=== PATIENT | female | born 1940 | race Caucasian/White ===

== ENCOUNTER → 2024-01-18 07:39 | Outpatient (REF) | payer OTHER, SELFPAY ==
[2024-01-18 08:31] LABS: % Basophils 1.6 % (0-2); % Eosinophils 2.5 % (0-6); % Immature Granulocytes 0.3 % (0-0.5); % Lymphocytes 47.5 % (20.5-51.1); % Monocytes 18.1 % (1.7-9.3); Absolute Basophils 0.1 10^3/uL (0-0.2); Absolute Eosinophils 0.1 10^3/uL (0-0.7); Absolute Lymphocytes 1.7 10^3/uL (1.2-3.4); Absolute Monocytes 0.7 10^3/uL (0.1-0.6); Absolute Neutrophils 1.1 10^3/uL (1.4-6.5); Hematocrit 39.4 % (37.0-47.0); Hemoglobin 13.7 g/dL (12.0-16.0); Mean Corp Hgb Conc. 34.8 g/dL (33.0-37.0); Mean Corpuscular Hgb 30.4 pg (27.0-31.0); Mean Corpuscular Volume 87.6 fL (81.0-99.0); Mean Platelet Volume 8.9 fL (7.4-10.4); Nucleated Red Blood Cells % 0 %; Platelet Count 244 10^3/uL (130-400); Red Cell Dist. Width 12.8 % (11.5-14.5); White Blood Cell Count 3.6 10^3/uL (4.8-10.8)
[2024-01-18 09:22] LABS: ALT (SGPT) 83 U/L (0-35); AST (SGOT) 63 U/L (14-36); Albumin 4.5 g/dl (3.5-5.0); Alkaline Phosphatase 48 U/L (38-126); Blood Urea Nitrogen 17 mg/dl (7-17); Calcium 9.4 mg/dl (8.4-10.2); Carbon Dioxide 26 mmol/L (22-30); Chloride 101 mmol/L (98-107); Glucose 119 mg/dl (70-99); HDL Cholesterol 43 mg/dl; LDL Cholesterol, Calculated 166 mg/dl; Potassium 4.3 mmol/L (3.5-5.1); Sodium 134 mmol/L (135-145); Total Bilirubin 0.7 mg/dl (0.2-1.3); Total Cholesterol 274 mg/dl (50-199); Total Protein 7.3 g/dl (6.3-8.2); Triglyceride 326 mg/dl (10-149); Very Low Density Lipoprotein 65 mg/dl (0-30); eGFR > 60.00
[2024-01-18 09:27] LABS: Glycohemoglobin (HgbA1c) 6.7 % (4.0-5.6)
== END ==
LOC: REG 07:39
PROVIDERS: ATTENDING PHYSICIAN Internal Medicine Endocrinology, Diabetes & Metabolism; FAMILY PHYSICIAN Internal Medicine
DX: E11.9 Type 2 diabetes mellitus without complications (principal)
CPT/HCPCS: 36415; 80053; 80061; 83036; 85025

== ENCOUNTER 2024-03-03 17:53 | Emergency (ER) | payer OTHER, SELFPAY ==
[2024-03-03 18:01] VITALS: BP 136/71; BMI 26.5
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
[2024-03-03 20:17] VITALS: BP 103/63
[2024-03-03] MEDS: TYLENOL 650 MG PO (20:24)
[2024-03-03 20:29] VITALS: BP 103/65
== END 2024-03-03 20:30 | disposition home or self-care (01) ==
LOC: EMR 17:53
PROVIDERS: EMERGENCY PHYSICIAN Emergency Medicine; FAMILY PHYSICIAN Internal Medicine
DX: S20.219A Contusion of unspecified front wall of thorax, initial encounter (principal); Y92.410 Unspecified street and highway as the place of occurrence of the external cause; K21.9 Gastro-esophageal reflux disease without esophagitis; I10 Essential (primary) hypertension; E78.00 Pure hypercholesterolemia, unspecified; E11.9 Type 2 diabetes mellitus without complications; Z87.440 Personal history of urinary (tract) infections
CPT/HCPCS: 99283; 71046; 93005

== ENCOUNTER 2024-04-14 07:16 | Emergency (ER) | payer OTHER, SELFPAY ==
[2024-04-14 07:23] VITALS: BP 133/76
[2024-04-14 08:53] VITALS: BP 126/71
[2024-04-14 09:00] VITALS: BP 114/62
--- NOTE | 2024-04-14 09:03 | ED.GENMED ---
History of Present Illness
General
Chief Complaint: Abdominal Symptoms
Source: patient and spouse
Exam Limitations: none
Time Seen by Provider: 04/14/24 08:35
Nursing documentation reviewed up to this point in time: agreed with
Travel History
Have you had any contact with someone who has COVID-19?: No
Do you have any symptoms of coronavirus? Fever > 100 degrees, chills, cough, shortness of breath, sore throat, loss of taste or smell, muscle aches, or headache?: No
History of Present Illness
History of Present Illness:
83-year-old female presents to the emergency department complaining of nausea, decreased appetite for past 3 days.
Past History
Past History
ED Past Medical History: GERD, HTN, Hypercholesterolemia, NIDDM (Diet controlled) and Other (Interstitial cystitis, UTIs)
ED Past Surgical History: Orthopedic and Tonsilectomy
Social History
Tobacco: Non-smoker
Alcohol: None
Drug: None
Personal:
Living: with family
Employment: Retired
Family History
Family History: Other (Noncontributory)
Review of Systems
Review of Systems
Allergies reviewed?: Yes
All Other Systems: Not applicable
Constitutional: Reports no symptoms
EENT: Reports no symptoms
Respiratory: Reports no symptoms
Cardiac: Reports no symptoms
ABD/GI: Reports nausea and anorexia
: Reports no symptoms
Musculoskeletal: Reports no symptoms
Skin: Reports no symptoms
Neurological: Reports no symptoms
Endocrine: Reports no symptoms
Hematologic/Lymphatic: Reports no symptoms
Psychiatric: Reports no symptoms
Phy Exam
Physical Exam
Physical Exam:
Physical Exam
General: no apparent distress, not acutely ill
Neck: supple. no meningeal signs. normal posterior pharynx
Heart: s1/s2 regular rate and rhythm, no murmur. equal radial
pulses.
HEENT: Pupils equal round reactive to light, EOMI
Lungs: no acute respiratory distress. clear bilaterally
Abdomen: normal bowel sounds. not tender. no CVAT
Neuro: alert and oriented. no focal neurological deficits cranial nerves II through XII intact, ambulates without difficulty
Skin: no rash
Psychiatric: well kept. interactive and cooperative
Extremities: no edema. no calf tenderness. negative homans. good distal pulses
Course
Orders/Labs/Results
Orders:
Orders
04/14/24 08:52
Complete Blood Count/With Diff Urgent
Comprehensive Metabolic Panel Urgent
Lipase Urgent
Comment: ADD ON
UA [Urinalysis] Urgent
Date Specimen was Collected: 04/14/24
Time Specimen was Collected: 08:24
Urine Microscopic Urgent
Date Specimen was Collected: 04/14/24
Time Specimen was Collected: 08:24
04/14/24 08:56
0.9% Sodium Chloride 1000 ml [Nss] 1,000 ml IV BOLUS
04/14/24 08:57
Ondansetron Injectable [Zofran] 4 mg IV NOW STA
04/14/24 09:01
0.9% Sodium Chloride 1000 ml [Nss] 1,000 ml IV BOLUS
Ondansetron Injectable [Zofran] 4 mg IV NOW STA
04/14/24 09:39
Add On- LAB Urgent
Tests Added?: lipase
Abnormal Lab Results
04/14/24
08:52
Absolute Monos (auto) 0.8 H 10^3/uL
(0.1-0.6)
Monocytes % 15.8 H %
(1.7-9.3)
Sodium 127 L mmol/L
(135-145)
Chloride 90 L mmol/L
(98-107)
Creatinine 0.5 L mg/dL
(0.6-1.0)
Glucose 142 H mg/dl
(70-99)
AST 91 H U/L
(14-36)
ALT 85 H U/L
(0-35)
Total Protein 8.3 H g/dl
(6.3-8.2)
Albumin 5.3 H g/dl
(3.5-5.0)
Urine Occult Blood Trace A
(Negative)
Ur Leukocyte Esterase Trace A
(Negative)
Urine Albumin 1+ A
(Neg - Trace)
04/14/24 08:52
04/14/24 08:52
Vital Signs
Initial and Last Documented VS:
Initial Vital Signs
Temp Pulse Resp BP Pulse Ox
97.9 F 94 20 133/76 96
04/14/24 07:23 04/14/24 07:23 04/14/24 07:23 04/14/24 07:23 04/14/24 07:23
Last Documented Vital Signs
Temp Pulse Resp BP Pulse Ox
97.9 F 78 20 130/67 88
04/14/24 07:23 04/14/24 09:47 04/14/24 07:23 04/14/24 10:00 04/14/24 10:39
MDM/Problems Addressed
Differential Diagnosis Includes:
hyponatremia, nausea
MDM/Problems Addressed:
83 yo female with hyponatremia, nausea. Unclear etiology. Mild improvement with zofran, NS bolus. Pt removed her own IV and got dressed and states she wants to leave. Abdomen exam benign. Zofran rx'd. Will f/u with pcp.
Chronic conditions affecting care: HTN
Acute Exacerbation and/or Progression of Chronic Illness: HTN
*Pulse Oximetry
Patient hypoxic: no
*EKG
Interpreted by ED Provider?: NA
*Sod Cutter Interpretation
Rate: Sod Cutter- N/A
*Critical Care Note
Total Time (30-74mins, 75-104mins- exclusive of procedures): Not Applicable
Patient Management
Social determinants of health affecting care: Living situation
Escalation/DeEscalation of care consider admission/obs:
admit not indicated
ED Attending Note
-
Portions of this chart may have been created with voice recognition software.� Occasional wrong word or��sound alike� substitutions may have occurred due to the inherent limitations of voice recognition software.
Discharge Plan
Departure
Patient Disposition: Home (Routine Discharge)
Date of Disposition: 04/14/24
Time of Disposition: 11:21
Patient with high blood pressure during this ER visit?: Yes
Condition: Good
Discharge Problem:
Nausea, Hyponatremia
Instructions: Dehydration, Adult (DC), Nausea and Vomiting, Adult (DC), Hyponatremia, BLOOD PRESSURE
Prescriptions:
New
ondansetron 4 mg tablet,disintegrating
4 mg PO Q8H PRN (Reason: nausea and vomiting) 4 Days Qty: 10 0RF
No Action
alprazolam 0.25 MG tablet
0.25 mg PO Q8HPRN PRN (Reason: anxiety)
amlodipine 10 MG tablet
10 mg PO DAILY
lansoprazole [Prevacid] 30 MG capsule,delayed release(DR/EC)
15 mg PO DAILY
lisinopril-hydrochlorothiazide 1 EACH tablet
1 ea PO DAILY@1800
owlfcntn-qhd-WX-lycopen-lutein [Centrum Silver] 1 EACH tablet
1 ea PO DAILY
cholecalciferol (vitamin D3) 2,000 UNIT tablet
1,000 unit PO DAILY
meloxicam 15 MG tablet
15 mg PO DAILYPRN PRN (Reason: pain)
famotidine 40 MG tablet
40 mg PO HS
hydroxyzine HCl 10 MG tablet
1 - 3 tab PO HS
mupirocin 1 APPLIC ointment
1 applic intranasal BID Qty: 1 0RF
Patient Comments:
pt states she started as ordered on 07/18 will give dose this morning
ondansetron 4 MG tablet,disintegrating
4 mg PO Q6H Qty: 20 0RF
Rx Instructions:
take 1/2 hour before pain med-hydrocodone
nitrofurantoin monohyd/m-cryst [Macrobid] 100 mg capsule
100 mg PO Q12H 5 Days Qty: 10 0RF
Referrals:
Elisabeth Torres MD [Family Provider] - Call in 1-3 days for appt
Interventions
Interventions:
*Risk Screen - Suicide Last Done: 04/14/24 07:23
*General Assessment Last Done: 04/14/24 07:23
*Neglect/Abuse Screening Last Done: 04/14/24 07:23
CC-Tbvhal-Anxschquig Assessment Last Done: 04/14/24 09:37
Discharge Date and Time
Print Language: TAJIK
[2024-04-14] MEDS: NSS 1000 IV (09:05)
[2024-04-14] MEDS: ZOFRAN 4 MG IV ×2 (09:05→10:33)
[2024-04-14 09:06] LABS: % Basophils 0.6 % (0-2); % Eosinophils 0.4 % (0-6); % Immature Granulocytes 0.2 % (0-0.5); % Lymphocytes 37.9 % (20.5-51.1); % Monocytes 15.8 % (1.7-9.3); % Neutrophils 45.1 % (42.2-75.2); Absolute Lymphocytes 1.9 10^3/uL (1.2-3.4); Absolute Monocytes 0.8 10^3/uL (0.1-0.6); Absolute Neutrophils 2.3 10^3/uL (1.4-6.5); Hematocrit 41.9 % (37.0-47.0); Hemoglobin 14.8 g/dL (12.0-16.0); Mean Corp Hgb Conc. 35.3 g/dL (33.0-37.0); Mean Corpuscular Hgb 30.2 pg (27.0-31.0); Mean Corpuscular Volume 85.5 fL (81.0-99.0); Mean Platelet Volume 8.8 fL (7.4-10.4); Nucleated Red Blood Cells % 0 %; Platelet Count 260 10^3/uL (130-400); Red Cell Dist. Width 12.8 % (11.5-14.5); White Blood Cell Count 5.1 10^3/uL (4.8-10.8)
[2024-04-14 09:22] LABS: ALT (SGPT) 85 U/L (0-35); AST (SGOT) 91 U/L (14-36); Albumin 5.3 g/dl (3.5-5.0); Alkaline Phosphatase 58 U/L (38-126); Blood Urea Nitrogen 9 mg/dl (7-17); Carbon Dioxide 22 mmol/L (22-30); Chloride 90 mmol/L (98-107); Glucose 142 mg/dl (70-99); Potassium 3.7 mmol/L (3.5-5.1); Sodium 127 mmol/L (135-145); Total Bilirubin 1.2 mg/dl (0.2-1.3); Total Protein 8.3 g/dl (6.3-8.2); eGFR > 60.00
[2024-04-14 09:45] LABS: Urine Albumin 1+ (Neg - Trace); Urine Bilirubin Negative (Negative); Urine Character Clear (Clear); Urine Color Yellow; Urine Glucose Negative (Negative); Urine Ketone Negative (Negative); Urine Leukocyte Trace (Negative); Urine Nitrite Negative (Negative); Urine Occult Blood Trace (Negative); Urine Urobilinogen Negative (Neg - 1+)
[2024-04-14 10:00] VITALS: BP 130/67
[2024-04-14 10:10] LABS: Lipase 71 U/L (23-300)
[2024-04-14 12:04] LABS: Urine Amorphous Seen; Urine Squamous Cell 21-25 /LPF (Few)
[2024-04-14 12:05] LABS: Urine Bacteria Few (Negative); Urine Red Blood Cell 0-2 /HPF (0-2); Urine White Cell 0-2 /HPF (0-5)
== END 2024-04-14 11:39 | disposition home or self-care (01) ==
LOC: EMR 07:16
PROVIDERS: Emergency Medicine; EMERGENCY PHYSICIAN Emergency Medicine; FAMILY PHYSICIAN Internal Medicine
DX: E87.1 Hypo-osmolality and hyponatremia (principal); R11.0 Nausea; R63.0 Anorexia; E11.9 Type 2 diabetes mellitus without complications; E78.00 Pure hypercholesterolemia, unspecified; I10 Essential (primary) hypertension; K21.9 Gastro-esophageal reflux disease without esophagitis; K57.92 Diverticulitis of intestine, part unspecified, without perforation or abscess without bleeding; K44.9 Diaphragmatic hernia without obstruction or gangrene; M19.90 Unspecified osteoarthritis, unspecified site; K76.0 Fatty (change of) liver, not elsewhere classified; Z96.651 Presence of right artificial knee joint; Z87.440 Personal history of urinary (tract) infections; Z87.891 Personal history of nicotine dependence; Z88.1 Allergy status to other antibiotic agents; Z88.5 Allergy status to narcotic agent; Z88.8 Allergy status to other drugs, medicaments and biological substances; Z91.048 Other nonmedicinal substance allergy status
CPT/HCPCS: 99284; 96374; 96361; 96376; 80053; 81003; 81015; 83690; 85025

== ENCOUNTER → 2024-04-29 08:56 | Outpatient (REF) | payer OTHER, SELFPAY ==
[2024-04-29 11:20] LABS: Folate > 20.0 ng/ml (2.76-20); Vitamin B12 723 pg/ml (239-931)
== END ==
LOC: REG 08:56
PROVIDERS: ATTENDING PHYSICIAN Internal Medicine
DX: E53.8 Deficiency of other specified B group vitamins (principal)
CPT/HCPCS: 36415; 82607; 82746

== ENCOUNTER → 2024-05-23 10:25 | Outpatient (REF) | payer OTHER, SELFPAY | LOC: RAD 10:25 | PROVIDERS: ATTENDING PHYSICIAN Internal Medicine | DX: R41.89 Other symptoms and signs involving cognitive functions and awareness (principal); Z81.8 Family history of other mental and behavioral disorders | CPT/HCPCS: 70450 ==

== ENCOUNTER → 2024-07-23 08:41 | Outpatient (REF) | payer OTHER, SELFPAY ==
[2024-07-23 10:13] LABS: Hematocrit 40.1 % (37.0-47.0); Mean Corp Hgb Conc. 34.9 g/dL (33.0-37.0); Mean Corpuscular Hgb 30.1 pg (27.0-31.0); Mean Corpuscular Volume 86.2 fL (81.0-99.0); Mean Platelet Volume 8.9 fL (7.4-10.4); Platelet Count 230 10^3/uL (130-400); Red Blood Cell Count 4.65 10^6/uL (4.20-5.40); Red Cell Dist. Width 13.1 % (11.5-14.5); White Blood Cell Count 3.4 10^3/uL (4.8-10.8)
[2024-07-23 10:55] LABS: Glycohemoglobin (HgbA1c) 6.6 % (4.0-5.6)
[2024-07-23 11:00] LABS: ALT (SGPT) 88 U/L (0-35); AST (SGOT) 68 U/L (14-36); Alkaline Phosphatase 50 U/L (38-126); Blood Urea Nitrogen 17 mg/dl (7-17); Calcium 10.4 mg/dl (8.4-10.2); Carbon Dioxide 27 mmol/L (22-30); Chloride 95 mmol/L (98-107); Glucose 133 mg/dl (70-99); HDL Cholesterol 47 mg/dl; LDL Cholesterol, Calculated 173 mg/dl; Potassium 4.1 mmol/L (3.5-5.1); Sodium 137 mmol/L (135-145); Total Bilirubin 0.6 mg/dl (0.2-1.3); Total Cholesterol 299 mg/dl (50-199); Total Protein 7.5 g/dl (6.3-8.2); Triglyceride 396 mg/dl (10-149); Very Low Density Lipoprotein 79 mg/dl (0-30); eGFR > 60.00
[2024-07-23 11:17] LABS: Absolute Neutrophils -Man Diff 1.2 10^3/uL (1.4-6.5); Band Neutrophils 0 % (0-3); Eosinophils 1 % (0-6); Lymphocytes 42 % (20-51); Monocytes 21 % (2-9); Segmented Neutrophils 36 % (42-75)
[2024-07-23 11:18] LABS: Normal RBC Morphology Yes; Platelets Checked Yes; Total Cells Counted 100
[2024-07-23 11:32] LABS: TSH Reflex To Free T4 1.92 uIU/ml (0.47-4.68)
== END ==
LOC: REG 08:41
PROVIDERS: ATTENDING PHYSICIAN Internal Medicine Endocrinology, Diabetes & Metabolism; FAMILY PHYSICIAN Internal Medicine
DX: E11.9 Type 2 diabetes mellitus without complications (principal); I10 Essential (primary) hypertension; D72.819 Decreased white blood cell count, unspecified; Z68.26 Body mass index [BMI] 26.0-26.9, adult
CPT/HCPCS: 36415; 80053; 80061; 83036; 84443; 85025

== ENCOUNTER → 2024-12-03 09:52 | Outpatient (REF) | payer OTHER, SELFPAY ==
[2024-12-03 11:16] LABS: Urine Albumin Trace (Neg - Trace); Urine Bilirubin Negative (Negative); Urine Character Clear (Clear); Urine Color Yellow; Urine Glucose Negative (Negative); Urine Ketone Negative (Negative); Urine Leukocyte Trace (Negative); Urine Nitrite Negative (Negative); Urine Occult Blood Negative (Negative); Urine Urobilinogen Negative (Neg - 1+)
[2024-12-03 11:25] LABS: Hematocrit 41.3 % (37.0-47.0); Hemoglobin 14.1 g/dL (12.0-16.0); Mean Corp Hgb Conc. 34.1 g/dL (33.0-37.0); Mean Corpuscular Volume 87.9 fL (81.0-99.0); Mean Platelet Volume 9.2 fL (7.4-10.4); Platelet Count 232 10^3/uL (130-400); Red Cell Dist. Width 12.9 % (11.5-14.5); White Blood Cell Count 3.2 10^3/uL (4.8-10.8)
[2024-12-03 11:40] LABS: Glycohemoglobin (HgbA1c) 6.7 % (4.0-5.6)
[2024-12-03 11:53] LABS: ALT (SGPT) 104 U/L (0-35); AST (SGOT) 79 U/L (14-36); Albumin 4.9 g/dl (3.5-5.0); Alkaline Phosphatase 54 U/L (38-126); Blood Urea Nitrogen 15 mg/dl (7-17); Calcium 9.8 mg/dl (8.4-10.2); Carbon Dioxide 28 mmol/L (22-30); Chloride 93 mmol/L (98-107); Glucose 131 mg/dl (70-99); HDL Cholesterol 47 mg/dl; LDL Cholesterol, Calculated 191 mg/dl; Potassium 4.3 mmol/L (3.5-5.1); Sodium 133 mmol/L (135-145); Total Bilirubin 0.7 mg/dl (0.2-1.3); Total Cholesterol 309 mg/dl (50-199); Total Protein 7.6 g/dl (6.3-8.2); Triglyceride 358 mg/dl (10-149); Very Low Density Lipoprotein 71 mg/dl (0-30); eGFR > 60.00
[2024-12-03 12:14] LABS: Band Neutrophils 0 % (0-3); Eosinophils 2 % (0-6); Lymphocytes 57 % (20-51); Monocytes 9 % (2-9); Platelets Checked Yes; Segmented Neutrophils 32 % (42-75)
[2024-12-03 12:15] LABS: Normal RBC Morphology Yes; Total Cells Counted 100
[2024-12-03 13:10] LABS: TSH Reflex To Free T4 2.14 uIU/ml (0.47-4.68)
[2024-12-03 14:08] LABS: Urine Squamous Cell >30 /LPF (Few)
[2024-12-03 14:09] LABS: Urine Bacteria Moderate (Negative); Urine Red Blood Cell 0-2 /HPF (0-2); Urine White Cell 0-2 /HPF (0-5)
== END ==
LOC: REG 09:52
PROVIDERS: ATTENDING PHYSICIAN Internal Medicine; OTHER PHYSICIAN Internal Medicine Endocrinology, Diabetes & Metabolism
DX: E11.9 Type 2 diabetes mellitus without complications (principal); I10 Essential (primary) hypertension
CPT/HCPCS: 36415; 80053; 80061; 81003; 81015; 83036; 84443; 85025; 87086

== ENCOUNTER → 2025-01-22 11:18 | Outpatient (REF) | payer OTHER, SELFPAY ==
[2025-01-22 13:12] LABS: % Basophils 1.5 % (0-2); % Eosinophils 3.4 % (0-6); % Immature Granulocytes 0.3 % (0-0.5); % Lymphocytes 47.3 % (20.5-51.1); % Monocytes 15.9 % (1.7-9.3); % Neutrophils 31.6 % (42.2-75.2); Absolute Basophils 0.1 10^3/uL (0-0.2); Absolute Eosinophils 0.1 10^3/uL (0-0.7); Absolute Lymphocytes 1.6 10^3/uL (1.2-3.4); Absolute Monocytes 0.5 10^3/uL (0.1-0.6); Hematocrit 40.9 % (37.0-47.0); Hemoglobin 13.7 g/dL (12.0-16.0); Mean Corp Hgb Conc. 33.5 g/dL (33.0-37.0); Mean Corpuscular Hgb 29.4 pg (27.0-31.0); Mean Corpuscular Volume 87.8 fL (81.0-99.0); Mean Platelet Volume 9.3 fL (7.4-10.4); Nucleated Red Blood Cells % 0 %; Platelet Count 246 10^3/uL (130-400); Red Blood Cell Count 4.66 10^6/uL (4.20-5.40); Red Cell Dist. Width 13.2 % (11.5-14.5); White Blood Cell Count 3.3 10^3/uL (4.8-10.8)
[2025-01-22 13:36] LABS: ALT (SGPT) 108 U/L (0-35); AST (SGOT) 85 U/L (14-36); Albumin 4.8 g/dl (3.5-5.0); Alkaline Phosphatase 56 U/L (38-126); Blood Urea Nitrogen 18 mg/dl (7-17); Calcium 10.2 mg/dl (8.4-10.2); Carbon Dioxide 23 mmol/L (22-30); Chloride 99 mmol/L (98-107); Glucose 133 mg/dl (70-99); Glycohemoglobin (HgbA1c) 6.9 % (4.0-5.6); HDL Cholesterol 47 mg/dl; LDL Cholesterol, Calculated 186 mg/dl; Sodium 136 mmol/L (135-145); Total Bilirubin 0.7 mg/dl (0.2-1.3); Total Cholesterol 299 mg/dl (50-199); Total Protein 7.5 g/dl (6.3-8.2); Triglyceride 333 mg/dl (10-149); Very Low Density Lipoprotein 66 mg/dl (0-30); eGFR > 60.00
== END ==
LOC: REG 11:18
PROVIDERS: ATTENDING PHYSICIAN Internal Medicine Endocrinology, Diabetes & Metabolism; FAMILY PHYSICIAN Internal Medicine
DX: E11.9 Type 2 diabetes mellitus without complications (principal)
CPT/HCPCS: 36415; 80053; 80061; 83036; 85025

== ENCOUNTER → 2025-05-06 16:28 | Outpatient (REF) | payer OTHER, SELFPAY ==
[2025-05-06 18:12] LABS: ALT (SGPT) 139 U/L (0-35); AST (SGOT) 121 U/L (14-36); Albumin 4.8 g/dl (3.5-5.0); Alkaline Phosphatase 68 U/L (38-126); Blood Urea Nitrogen 20 mg/dl (7-17); Calcium 9.8 mg/dl (8.4-10.2); Carbon Dioxide 21 mmol/L (22-30); Chloride 102 mmol/L (98-107); Glucose 154 mg/dl (70-99); Sodium 134 mmol/L (135-145); Total Bilirubin 0.5 mg/dl (0.2-1.3); Total Protein 7.6 g/dl (6.3-8.2); eGFR > 60.00
== END ==
LOC: REG 16:28
PROVIDERS: ATTENDING PHYSICIAN Internal Medicine Rheumatology; FAMILY PHYSICIAN Internal Medicine
DX: M81.0 Age-related osteoporosis without current pathological fracture (principal)
CPT/HCPCS: 36415; 80053

== ENCOUNTER 2025-05-25 15:02 | Inpatient (IN) | payer OTHER, SELFPAY ==
[2025-05-25] VITALS (36 sets, daily range): BP systolic 69–131; BP diastolic 37–97; BMI 28.0; BMI 27.2
[2025-05-25] MEDS: NSS 1000 IV ×3 (11:45→16:40)
--- NOTE | 2025-05-25 11:48 | ED.GENMED ---
History of Present Illness
<Michell Del Rosario PA-C - Last Filed: 05/26/25 08:48>
General
Chief Complaint: Weakness
Source: patient and family
Exam Limitations: none
Time Seen by Provider: 05/25/25 11:33
Nursing documentation reviewed up to this point in time: agreed with
History of Present Illness
History of Present Illness:
84-year-old female history of hypertension, Lundberg, mild dementia, GERD presents for fatigue and weakness over the last week. Daughter who does not live with her is in the room and gives most of the story saying that her mom has been pretty wiped out
and having less of an appetite than normal. 3 days ago all she did was sleep all day. Yesterday and the day before she was able to drink some Ensure and they thought maybe she was dehydrated but today the symptoms continued so daughter called the
family doctor who instructed her to come to the hospital. Patient does have a history of getting UTIs but she does not have any urinary symptoms. She also has no infectious symptoms like fever, cough, sore throat, diarrhea, wear. Patient says she
just wants she otherwise answers questions appropriately.
Lisinopril and currently amlodipine this morning
Past History
<Michell Del Rosario PA-C - Last Filed: 05/26/25 08:48>
Past History
ED Past Medical History: GERD, HTN, Hypercholesterolemia, NIDDM (Diet controlled) and Other (Interstitial cystitis, UTIs)
ED Past Surgical History: Orthopedic and Tonsilectomy
Social History
Tobacco: Non-smoker
Alcohol: None
Drug: None
Personal:
Living: with family
Employment: Retired
Family History
Family History: Other (Noncontributory)
Review of Systems
<Michell Del Rosario PA-C - Last Filed: 05/26/25 08:48>
Review of Systems
Allergies reviewed?: Yes
All Other Systems: Not applicable
Phy Exam
<Michell Del Rosario PA-C - Last Filed: 05/26/25 08:48>
Physical Exam
Physical Exam:
GENERAL: Alert , in no apparent distress; mildly fatigued
EYE: pupils equal and reactive
NECK: Supple
ENT: o/p clr, mmm.
CARDIAC: Regular rate and rhythm, no edema
LUNGS: Clear breath sounds bilaterally, no acute respiratory distress, no wheezes/rales/rhonchi
ABDOMEN: Soft, without focal tenderness, no r/g, no cvat, normal bowel sounds
NEUROLOGICAL: Alert and oriented, no focal neuro deficits, normal strength
SKIN: Warm and dry, skin intact.
MUSCULOSKELETAL: No edema, well perfused. neg madie's sign
PSYCH: Normal and appropriate interaction.
Course
<Michell Del Rosario PA-C - Last Filed: 05/26/25 08:48>
Orders/Labs/Results
Orders:
Orders
05/25/25 11:44
Straight cath- Treatment ONCE
0.9% Sodium Chloride 1000 ml [Nss] 1,000 ml IV BOLUS
CR Chest Portable - 1 View Urgent
Comment:
Reason For Exam: sepsis
Reason Study Needs to be Portable: Patient Unstable
05/25/25 11:45
Electrocardiogram (*1) Urgent
Reason for Study: Fatigue / Weakness
EKG- Treatment ONCE
05/25/25 11:49
Complete Blood Count/With Diff Urgent
Lactic Acid Urgent
TSH Reflex To Free T4 Urgent
Urinalysis Reflex To Culture Urgent
Date Specimen was Collected: 05/25/25
Time Specimen was Collected: 11:47
Urine Microscopic Reflex Cult Urgent
Urine Culture Urgent
ALISSA Source: U
Specimen Description:
Date Specimen was Collected: 05/25/25
Time Specimen was Collected: 11:47
05/25/25 11:50
Comprehensive Metabolic Panel Urgent
Blood Culture Q30M
ALISSA Source: Blood/Venous
Specimen Description:
05/25/25 12:22
Blood Culture Q30M
ALISSA Source: Blood/Venous
Specimen Description:
05/25/25 12:30
0.9% Sodium Chloride 1000 ml [Nss] 1,000 ml IV BOLUS
05/25/25 12:49
CT Abd/Pel (IV only)-DH only Urgent
Comment:
Reason For Exam: HYPOTENSION
05/25/25 13:10
COVID-19 Antigen Urgent
Source: Nasal Swab
Influenza A+B Rapid Molecular Urgent
ALISSA Source: Nasal Swab
Specimen Description:
05/25/25 13:43
Piperacillin/Tazo 4.5 Gram [Zosyn] 4.5 gram in 100 ml IV NOW
05/25/25 14:15
NORepinephrine 4 MG/250 ML [Levophed] 4 mg in 250 ml IV PER PROTOCOL
Initial dose in mcg/min, then titrate:: 3
Titrate to keep:: SBP > 90 mmHg
Titrate by mcg/min:: 1-2 mcg/min
Frequency of titrations (minutes):: 5
Maximum dose in ICU in mcg/min:: 30
Maximum dose in IMU in mcg/min:: 8
Maximum dose in IVU in mcg/min:: 4
Begin to taper infusion when:: Remained at goal for 4hrs
Taper by mcg/min:: 1-2 mcg/min
Frequency of taper (minutes) if patient maintains goal:: 30
Taper to off?: Yes
If infusion off & no longer maintaining goal:: Contact Provider
05/25/25 14:36
Admit/Transfer Patient As Directed
Co-Sign Provider:
Level of Care: Inpatient admission
Assign to:: ICU
Physician / Group: delilah
Diagnosis: sepsis
Reason for Hospitalization: sepsis
Expected length of stay greater than two midnights?: Yes
ELOS- Estimated Length of Stay in days: 3
I certify the patient meets the requirements for IP care: Yes
PRN Pain Medication Management As Directed
May give lesser potent ordered pain med per pt: Yes
preference::
Protocol:: Medication orders for pain may be administered in a
manner that supports deferring to patient preference
when the pt is:
- Requesting an ordered lesser potent pain medication.
Least to most potent pain medications are defined
as: acetaminophen < NSAID < tramadol < opioids
(morphine, oxycodone, hydromorphone).
- Requesting a lesser dose of the same medication IF
ORDERED.
- Requesting a less intrusive route of administration
if both routes are prescribed by the provider (PO <
IV).
05/25/25 14:37
Code Status As Directed
Resuscitation Status: Full Code
05/25/25 16:07
0.9% Sodium Chloride 1000 ml [Nss] 1,000 ml IV 80 mls/hr
VANCOMYCIN Pharmacy to Dose [VANCOCIN Pharmacy to Dose] 1 each Pharmacy To Prepare [Call Pharmacy To Prepare] 0 ml IV PER PROTOCOL
05/25/25 16:07
Activity As Directed
Activity Level: As Tolerated
Intake/ Output As Directed
Frequency: Per unit guidelines
Vital Signs As Directed
Frequency: Per unit guidelines
DX Deep Vein Thrombosis Video Routine
05/25/25 17:05
Lactic Acid Q4H
Comment: repeat q4 hours x 4 or until less than 2 mmol/L
05/25/25 18:00
Enoxaparin Sodium [Lovenox] 40 mg SC QPM
05/25/25 20:00
Piperacillin/Tazo 2.25 Gram [Zosyn] 2.25 grams in 50 ml IV Q6H
05/25/25 22:00
Escitalopram Oxalate [Lexapro] 15 mg PO HS
05/26/25 06:00
Occupational Therapy Consult [Ot Eval And Treat] IN AM
Physical Therapy Consult [Pt Eval And Treat] IN AM
Activity Level: As Tolerated
05/26/25 08:00
Pantoprazole [Protonix] 20 mg PO DAILY
Abnormal Lab Results
05/25/25 05/25/25
11:49 11:50
RBC 4.16 L 10^6/uL
(4.20-5.40)
Hct 34.9 L %
(37.0-47.0)
Plt Count 122 L 10^3/uL
(130-400)
MPV 10.6 H fL
(7.4-10.4)
Absolute Lymphs (auto) 0.6 L 10^3/uL
(1.2-3.4)
Neutrophils % 75.5 H %
(42.2-75.2)
Lymphocytes % 13.2 L %
(20.5-51.1)
Sodium 127 L mmol/L
(135-145)
Chloride 95 L mmol/L
(98-107)
BUN 39 H mg/dl
(7-17)
Glucose 167 H mg/dl
(70-99)
Lactic Acid 2.1 H mmol/L
(0.7-2.0)
AST 43 H U/L
(14-36)
ALT 67 H U/L
(0-35)
Urine Bacteria (Reflex) Moderate A
(Negative)
Urine Albumin (Reflex) 2+ A
(Neg - Trace)
05/25/25 11:49
05/25/25 11:50
Vital Signs
Initial and Last Documented VS:
Initial Vital Signs
Temp Pulse Resp BP Pulse Ox
98.3 F 84 16 78/38 95
05/25/25 11:11 05/25/25 11:11 05/25/25 11:11 05/25/25 11:11 05/25/25 11:11
Last Documented Vital Signs
Temp Pulse Resp BP Pulse Ox
98.9 F 85 18 110/60 94
05/26/25 23:39 05/26/25 23:39 05/26/25 23:39 05/26/25 23:39 05/26/25 23:39
<Tu Levi, DO - Last Filed: 05/27/25 06:57>
Orders/Labs/Results
Orders:
Orders
05/25/25 11:44
Straight cath- Treatment ONCE
0.9% Sodium Chloride 1000 ml [Nss] 1,000 ml IV BOLUS
CR Chest Portable - 1 View Urgent
Comment:
Reason For Exam: sepsis
Reason Study Needs to be Portable: Patient Unstable
05/25/25 11:45
Electrocardiogram (*1) Urgent
Reason for Study: Fatigue / Weakness
EKG- Treatment ONCE
05/25/25 11:49
Complete Blood Count/With Diff Urgent
Lactic Acid Urgent
TSH Reflex To Free T4 Urgent
Urinalysis Reflex To Culture Urgent
Date Specimen was Collected: 05/25/25
Time Specimen was Collected: 11:47
Urine Microscopic Reflex Cult Urgent
Urine Culture Urgent
ALISSA Source: U
Specimen Description:
Date Specimen was Collected: 05/25/25
Time Specimen was Collected: 11:47
05/25/25 11:50
Comprehensive Metabolic Panel Urgent
Blood Culture Q30M
ALISSA Source: Blood/Venous
Specimen Description:
05/25/25 12:22
Blood Culture Q30M
ALISSA Source: Blood/Venous
Specimen Description:
05/25/25 12:30
0.9% Sodium Chloride 1000 ml [Nss] 1,000 ml IV BOLUS
05/25/25 12:49
CT Abd/Pel (IV only)-DH only Urgent
Comment:
Reason For Exam: HYPOTENSION
05/25/25 13:10
COVID-19 Antigen Urgent
Source: Nasal Swab
Influenza A+B Rapid Molecular Urgent
ALISSA Source: Nasal Swab
Specimen Description:
05/25/25 13:43
Piperacillin/Tazo 4.5 Gram [Zosyn] 4.5 gram in 100 ml IV NOW
05/25/25 14:15
NORepinephrine 4 MG/250 ML [Levophed] 4 mg in 250 ml IV PER PROTOCOL
Initial dose in mcg/min, then titrate:: 3
Titrate to keep:: SBP > 90 mmHg
Titrate by mcg/min:: 1-2 mcg/min
Frequency of titrations (minutes):: 5
Maximum dose in ICU in mcg/min:: 30
Maximum dose in IMU in mcg/min:: 8
Maximum dose in IVU in mcg/min:: 4
Begin to taper infusion when:: Remained at goal for 4hrs
Taper by mcg/min:: 1-2 mcg/min
Frequency of taper (minutes) if patient maintains goal:: 30
Taper to off?: Yes
If infusion off & no longer maintaining goal:: Contact Provider
05/25/25 14:36
Admit/Transfer Patient As Directed
Co-Sign Provider:
Level of Care: Inpatient admission
Assign to:: ICU
Physician / Group: delilah
Diagnosis: sepsis
Reason for Hospitalization: sepsis
Expected length of stay greater than two midnights?: Yes
ELOS- Estimated Length of Stay in days: 3
I certify the patient meets the requirements for IP care: Yes
PRN Pain Medication Management As Directed
May give lesser potent ordered pain med per pt: Yes
preference::
Protocol:: Medication orders for pain may be administered in a
manner that supports deferring to patient preference
when the pt is:
- Requesting an ordered lesser potent pain medication.
Least to most potent pain medications are defined
as: acetaminophen < NSAID < tramadol < opioids
(morphine, oxycodone, hydromorphone).
- Requesting a lesser dose of the same medication IF
ORDERED.
- Requesting a less intrusive route of administration
if both routes are prescribed by the provider (PO <
IV).
05/25/25 14:37
Code Status As Directed
Resuscitation Status: Full Code
05/25/25 16:07
0.9% Sodium Chloride 1000 ml [Nss] 1,000 ml IV 80 mls/hr
VANCOMYCIN Pharmacy to Dose [VANCOCIN Pharmacy to Dose] 1 each Pharmacy To Prepare [Call Pharmacy To Prepare] 0 ml IV PER PROTOCOL
05/25/25 16:07
Activity As Directed
Activity Level: As Tolerated
Intake/ Output As Directed
Frequency: Per unit guidelines
Vital Signs As Directed
Frequency: Per unit guidelines
DX Deep Vein Thrombosis Video Routine
05/25/25 17:05
Lactic Acid Q4H
Comment: repeat q4 hours x 4 or until less than 2 mmol/L
05/25/25 18:00
Enoxaparin Sodium [Lovenox] 40 mg SC QPM
05/25/25 20:00
Piperacillin/Tazo 2.25 Gram [Zosyn] 2.25 grams in 50 ml IV Q6H
05/25/25 22:00
Escitalopram Oxalate [Lexapro] 15 mg PO HS
05/26/25 06:00
Occupational Therapy Consult [Ot Eval And Treat] IN AM
Physical Therapy Consult [Pt Eval And Treat] IN AM
Activity Level: As Tolerated
05/26/25 08:00
Pantoprazole [Protonix] 20 mg PO DAILY
Abnormal Lab Results
05/25/25 05/25/25
11:49 11:50
RBC 4.16 L 10^6/uL
(4.20-5.40)
Hct 34.9 L %
(37.0-47.0)
Plt Count 122 L 10^3/uL
(130-400)
MPV 10.6 H fL
(7.4-10.4)
Absolute Lymphs (auto) 0.6 L 10^3/uL
(1.2-3.4)
Neutrophils % 75.5 H %
(42.2-75.2)
Lymphocytes % 13.2 L %
(20.5-51.1)
Sodium 127 L mmol/L
(135-145)
Chloride 95 L mmol/L
(98-107)
BUN 39 H mg/dl
(7-17)
Glucose 167 H mg/dl
(70-99)
Lactic Acid 2.1 H mmol/L
(0.7-2.0)
AST 43 H U/L
(14-36)
ALT 67 H U/L
(0-35)
Urine Bacteria (Reflex) Moderate A
(Negative)
Urine Albumin (Reflex) 2+ A
(Neg - Trace)
05/25/25 11:49
05/25/25 11:50
Vital Signs
Initial and Last Documented VS:
Initial Vital Signs
Temp Pulse Resp BP Pulse Ox
98.3 F 84 16 78/38 95
05/25/25 11:11 05/25/25 11:11 05/25/25 11:11 05/25/25 11:11 05/25/25 11:11
Last Documented Vital Signs
Temp Pulse Resp BP Pulse Ox
98.9 F 85 18 110/60 94
05/26/25 23:39 05/26/25 23:39 05/26/25 23:39 05/26/25 23:39 05/26/25 23:39
<Michell Del Rosario PA-C - Last Filed: 05/26/25 08:48>
MDM/Problems Addressed
Differential Diagnosis Includes:
sepsis, adrenal insufficiency, myxedema, dehydration, dementia
MDM/Problems Addressed:
84 y/o F
h/o cardiomyopathy, frequent UTIs, mild dementia
here with fatigue, less appetite, low bp
pt has no infeectious sypmtoms, fever, cough, urinary sypmtoms
her bp was 70s/40s
she is awake and alert, but then says she wants to sleep
no complaints
presumed UTI but urine is not convincing
cxr clear
lactic 2.1
rectal temp 99.7
empiricaly treated with abx for sepsis
bp transiently stabilized to 90s on 2L IVF, but then down again to 80s;
levophed started
pt admitted
<Michell Del Rosario PA-C - Last Filed: 05/26/25 08:48>
*Pulse Oximetry
SaO2: 95
Oxygen Mode of Delivery: Room air
<Tu Levi DO - Last Filed: 05/27/25 06:57>
*Pulse Oximetry
Patient hypoxic: no
*Critical Care Note
Total Time (30-74mins, 75-104mins- exclusive of procedures): 45
comment:
Critical care statement: A total of 45 minutes of critical care time was provided for this patient. This includes management of unstable vital signs, evaluation of the patient at bedside, reviewing the patient's pertinent medical records, discussion
with consultants, review of old EKGs and review of pertinent medical records. This time with separate from time utilized to perform the aforementioned documented procedures
ED Attending Note
<Michell Del Rosario PA-C - Last Filed: 05/26/25 08:48>
-
Portions of this chart may have been created with voice recognition software.� Occasional wrong word or��sound alike� substitutions may have occurred due to the inherent limitations of voice recognition software.
<Tu Levi DO - Last Filed: 05/27/25 06:57>
ED Attending Note
Patient seen and examined by attending physician: Yes
ED Attending Note:
I reviewed and agree with history and plan by Michell Del Rosario PA-C. My exam revealed
Physical Exam
General: Blood pressure 90/53, temperature 99.6
Neck: supple. no meningeal signs. normal posterior pharynx
Heart: s1/s2 regular rate and rhythm, no murmur. equal radial
pulses.
HEENT: Pupils equal round reactive to light, EOMI
Lungs: no acute respiratory distress. clear bilaterally
Abdomen: normal bowel sounds. not tender. no CVAT
Neuro: alert and oriented to person place. no focal neurological deficits cranial nerves II through XII intact
Skin: no rash
Psychiatric: well kept. interactive and cooperative
Extremities: no edema. no calf tenderness. negative homans. good distal pulses
84-year-old female with hyponatremia, weakness. Mild lactic acidosis. IV fluids given. Will give broad-spectrum antibiotics and admit to hospitalist. CT abdomen pelvis pending.
Discharge Plan
Departure
Patient Disposition: Admit
Date of Disposition: 05/25/25
Time of Disposition: 14:09
Admit to: ICU
Presentation/result/management discussed w/ accepting MD/DO: Hospitalist
Condition: Critical
Covid-19: Not Applicable
Discharge Problem:
Septic shock
Interventions
Interventions:
*Risk Screen - Suicide Last Done: 05/25/25 11:20
*General Assessment Last Done: 05/25/25 11:54
*Neglect/Abuse Screening Last Done: 05/25/25 11:20
*ED- Fall Risk Assessment Last Done: 05/25/25 15:25
*ED COVID-19 Vaccine History Last Done: 05/25/25 15:25
*Nursing Disposition Last Done: 05/25/25 16:05
ED- Cardiac Assessment Last Done: 05/25/25 11:54
ED- Neurological Assessment Last Done: 05/25/25 11:54
ED- Pulmonary Assessment Last Done: 05/25/25 11:54
Discharge Date and Time
Discharge Date/Time: 05/25/25 16:06
[2025-05-25 12:22] LABS: Hematocrit 34.9 % (37.0-47.0); Hemoglobin 12.2 g/dL (12.0-16.0); Mean Corp Hgb Conc. 35.0 g/dL (33.0-37.0); Mean Corpuscular Volume 83.9 fL (81.0-99.0); Nucleated Red Blood Cells % 0 %; Platelet Count 122 10^3/uL (130-400); Red Cell Dist. Width 13.2 % (11.5-14.5)
[2025-05-25 12:30] LABS: Urine Character Clear (Clear)
[2025-05-25 12:37] LABS: ALT (SGPT) 67 U/L (0-35); AST (SGOT) 43 U/L (14-36); Albumin 3.7 g/dl (3.5-5.0); Alkaline Phosphatase 43 U/L (38-126); Blood Urea Nitrogen 39 mg/dl (7-17); Calcium 8.5 mg/dl (8.4-10.2); Carbon Dioxide 23 mmol/L (22-30); Chloride 95 mmol/L (98-107); Estimated Creatinine Clearance 33 ml/min; Glucose 167 mg/dl (70-99); Potassium 3.7 mmol/L (3.5-5.1); Sodium 127 mmol/L (135-145); Total Protein 6.4 g/dl (6.3-8.2); eGFR 55.90
[2025-05-25 13:01] LABS: Urine Red Blood Cell 0-2 /HPF (0-2); Urine Squamous Cell 0-2 /LPF (Few)
[2025-05-25 13:47] LABS: COVID-19 Antigen Negative (Negative)
[2025-05-25] MEDS: ZOSYN 100 IV (14:01)
[2025-05-25] MEDS: LEVOPHED 250 IV (14:14)
--- NOTE | 2025-05-25 14:16 | HPS.HSE ---
Family Physician
-
Family Physician: Elisabeth Powell
Chief Complaint
-
Fatigue and weakness
History of Present Illness
84-year-old female history of hypertension, Gar, mild dementia, GERD presents for fatigue and weakness over the last week. As per daughter very poor appetite. She has been sleeping more than usual. Patient denied any fever, chills, headache,
dizzy, chest pain, short of breath. Patient denied any abdominal pain, nausea, vomiting or diarrhea. Patient denies any dysuria or hematuria. denied any rash, wounds or tick bites.
Patient started on Levophed, received normal saline x 2 bag, Zosyn in ER
Blood culture sent from ER. Admitted for further management
Medical History
Past Medical History
Past Medical History: Reports Other
Additional Past Medical History:
GAR
UTI
Interstitial cystitis
Hypercalcemia
Type 2 diabetes
Colon polyps
Osteoporosis
Hypertension
GERD
Leukopenia
Past Surgical History: Reports Other
Additional Past Surgical History:
Left rotator cuff repair
Bilateral cataract surgery
Right total knee replacement
Nasal cartilage surgery
Submucous resection
Tonsillectomy
Cystoscopy
Laser treatment for glaucoma
Mohs surgery
Left TKR
Social History
Tobacco: Former Smoker
Alcohol: None
Drug: None
Personal: Single
Living: Alone
Family History
Family History: Not pertinent
Allergies / Home Medications
Allergies reflects when Allergies were last updated in [facility].
Home Medications with original date entered in [facility]
Allergy/Medication List:
Allergies
Allergy/AdvReac Type Severity Reaction Status Date / Time
clindamycin Allergy DIARRHEA Verified 04/14/24 07:27
fenofibrate nanocrystallized Allergy diarrhea Verified 04/14/24 07:27
(From Tricor)
fenofibrate,micronized (From Allergy diarrhea Verified 04/14/24 07:27
Tricor)
metformin Allergy diarrhea Verified 04/14/24 07:27
and belly
pain
metronidazole (From Flagyl) Allergy diarrhea Verified 04/14/24 07:27
niacin Allergy inflamed Verified 04/14/24 07:27
liver
oxycodone HCl (From Percodan) Allergy nausea, Verified 04/14/24 07:27
dizziness,
spaced out
prochlorperazine maleate Allergy Difficulty Verified 04/14/24 07:27
(From Compazine) speaking,
facial
distortion
ranitidine HCl (From Zantac) Allergy Leg cramps Verified 04/14/24 07:27
Hioxynt-UUB-EpO Reductase Allergy Diarrhea, Verified 04/14/24 07:27
Inhibitor (Dvjilud-Tvo-Raj gas,
Reductase Inhibitor) bloating,
intestinal
pain
Home Medications
amlodipine 10 mg tablet (Norvasc) 10 mg PO DAILY 05/25/25
escitalopram oxalate 5 mg tablet (Lexapro) 15 mg PO DAILY 05/25/25
lansoprazole 15 mg capsule,delayed release 15 mg PO DAILY 05/25/25
lisinopril 20 mg-hydrochlorothiazide 25 mg tablet 1 tab PO DAILY 05/25/25
Review of Systems
-
Constitutional: Reports Fatigue
EENT: Reports No Symptoms
Respiratory: Reports No Symptoms
Cardiac: Reports No Symptoms
Abdomen/GI: Reports No Symptoms
: Reports No Symptoms
Musculoskeletal: Reports No Symptoms
Skin: Reports No Symptoms
Neurological: Reports Weakness
Endocrine: Reports No Symptoms
Hematologic/Lymphatic: Reports No Symptoms
Psych: Reports No Symptoms
Physical Exam
Vital Signs
Vital Signs
Temp Pulse Resp BP Pulse Ox
99.6 F 79 20 90/44 94
05/25/25 11:53 05/25/25 13:30 05/25/25 13:30 05/25/25 13:00 05/25/25 13:30
Physical Exam
General: Well Developed, Well Nourished and No Apparent Distress
HEENT: NormoCephalic, Moist mucous membranes and Atraumatic
Respiratory: Clear
Cardiac: S1/S2 and Regular Rhythm; No Murmur or Rub
GI: Soft, Non Tender, Non Distended and Normal Bowel Sounds; No Organomegaly
Rectal: Deferred by Provider
Musculoskeletal: No Clubbing, No Cyanosis and No Edema
Skin: No Rash
Neuro: AO x 3 and Nonfocal/grossly intact
Psych: Calm
Laboratory Results
-
05/25/25 11:49
05/25/25 11:50
Laboratory Results
Lactic Acid 2.1 mmol/L (0.7-2.0) H 05/25/25 11:49
Total Bilirubin 0.6 mg/dl (0.2-1.3) 05/25/25 11:50
AST 43 U/L (14-36) H 05/25/25 11:50
ALT 67 U/L (0-35) H 05/25/25 11:50
Alkaline Phosphatase 43 U/L (38-126) 05/25/25 11:50
Data Reviewed
-
Lab Data: Labs Reviewed by me
Impression/Plan
-
# Sepsis unclear source
- Lactic 2.1, hypotension
- UA negative, COVID-negative
- Chest x-ray pending
- CT abdomen pelvis pending
- IV Zosyn continued
#Hypotension secondary to sepsis
- On Levophed
# Hyponatremia likely hypovolemic
- Sodium 127
- Normal saline continue
# Chronic transaminitis
# History of Gar
- AST 43, ALT 67
# GERD
-PPI continued
# CODE STATUS
- Full code
# DVT prophylaxis
- Lovenox subcu
--- NOTE | 2025-05-25 15:22 | W.PN.UPDATE ---
Update Note
Progress Note Update
This is an addendum to H&P written by Jen Vale on 05/25/2025. �Patient seen and examined independently with DIRECTOR OF REHABILITATIVE SERVICES.
84-year-old female past medical history of mild dementia, hypertension, diabetes, nonalcoholic fatty liver disease, chronic interstitial cystitis, UTIs, osteoarthritis, colon polyps, GERD, osteoporosis, presenting with generalized weakness and
fatigue.
Patient arrives with blood pressure in 80s.
Labs show sodium of 127. �Mild transaminitis. �Platelets at 122.
Urinalysis unremarkable. �Chest x-ray shows no acute abnormality, report pending.
Patient with septic shock unclear source. �Continues to be hypotensive despite 2 L IV fluids. �Started on Levophed. �Blood cultures pending. �Vancomycin and Zosyn. �CT abdomen pelvis pending.
--- NOTE | 2025-05-25 15:34 | CON.INTV ---
Consultation
Consultation Request
Date/Time Consultation Requested: 05/25/2025-3 4 5 PM
Date/Time Consultation Performed: 05/25/2025-4 PM
Requesting Provider: Hospitalist
Performing Provider: Dr. Mccarthy
Reason for Consultation: Sepsis/critical care management
Medical History
-
Chief Complaint: Sepsis
History of Present Illness:
84-year-old female with a history of hypertension, dementia, Gar, reflux presented with fatigue and weakness as well as anorexia and somnolence found to be hypotensive requiring pressors-data collection technician consulted for sepsis/pressors/critical care
management 05/25/2025.Patient is lethargic and demented and reliable review of systems was unobtainable.. The patient states that she feels like her daughter thought that she was sleeping too much and was somewhat lethargic. She has no complaints
of shortness of breath, chest pain, chest tightness, chest congestion, productive cough, abdominal pain, nausea, focal weakness or swelling.
Past Medical History
Past Medical History: None (Interstitial cystitis. GAR. Hypercalcemia. Diabetes. Dementia. Osteoporosis. Hypertension. GERD. Rotator cuff repair. Cataract. Right TKR. Tonsillectomy. Cystoscopy. Glaucoma.)
Social History
Tobacco: Former Smoker ('Social smoker' and quit 40 years ago)
Alcohol: None
Drug: None
Personal:
Living: With Family
Occupational Exposures: No known asbestos exposure
Environmental Exposures: No known tuberculosis exposure
Family History
Family History: Reviewed & Not Pertinent
Allergies / Home Medications
Allergies
Allergy/AdvReac Type Severity Reaction Status Date / Time
niacin Allergy inflamed Verified 04/14/24 07:27
liver
clindamycin AdvReac DIARRHEA Verified 05/25/25 15:12
fenofibrate nanocrystallized AdvReac diarrhea Verified 05/25/25 15:12
(From Tricor)
fenofibrate,micronized (From AdvReac diarrhea Verified 05/25/25 15:12
Tricor)
metformin AdvReac diarrhea Verified 05/25/25 15:12
and belly
pain
metronidazole (From Flagyl) AdvReac diarrhea Verified 05/25/25 15:12
oxycodone HCl (From Percodan) AdvReac nausea, Verified 05/25/25 15:12
dizziness,
spaced out
prochlorperazine maleate AdvReac Difficulty Verified 05/25/25 15:12
(From Compazine) speaking,
facial
distortion
ranitidine HCl (From Zantac) AdvReac Leg cramps Verified 05/25/25 15:12
Qutszid-ATC-NaQ Reductase AdvReac Diarrhea, Verified 05/25/25 15:12
Inhibitor (Vhqreyh-Lly-Lok gas,
Reductase Inhibitor) bloating,
intestinal
pain
Home Medications
�Medication �Instructions �Recorded �Confirmed �Last Taken �Type
amlodipine 10 mg tablet (Norvasc) 10 mg PO DAILY Blood Pressure 05/25/25 05/25/25 05/25/25 History
cholecalciferol (vitamin D3) 25 25 mcg PO DAILY Supplement 05/25/25 05/25/25 05/25/25 History
mcg (1,000 unit) tablet (Vitamin
D3)
cranberry extract 200 mg capsule 200 mg PO DAILY Urinary Issue 05/25/25 05/25/25 05/25/25 History
(Ellura)
escitalopram oxalate 5 mg tablet 15 mg PO HS Mental Health/Anxiety 05/25/25 05/25/25 Unknown History
(Lexapro)
lansoprazole 15 mg capsule,delayed 15 mg PO DAILY GERD 05/25/25 05/25/25 05/25/25 History
release
lisinopril 20 1 tab PO QPM Blood Pressure 05/25/25 05/25/25 05/24/25 History
mg-hydrochlorothiazide 25 mg tablet
therapeutic multivitamin 1 tab PO DAILY Supplement 05/25/25 05/25/25 05/25/25 History
Review of Systems
-
Unable to Obtain full review of systems at this time due to: Other (Per HPI)
Vitals / Labs / Diagnostic Testing
Vital Signs
Temp Pulse Resp BP Pulse Ox
98.4 F 76 20 110/51 96
05/25/25 15:14 05/25/25 15:14 05/25/25 15:14 05/25/25 15:14 05/25/25 15:14
Lab Data
05/25/25 11:49
05/25/25 11:50
Microbiology
05/25/25 13:10 Nasal Swab Influenza Types A & B (LAURY) - Final
Negative for Influenza A & B, NAAT
Negative results must be combined with clinical observations
and patient history.
Nucleic Acid Amplification test (NAAT)performed on the
[employer] platform.
Diagnostic Testing:
Physical Exam
-
Exam:
Well-nourished and well-developed in no apparent distress
HEENT-atraumatic, normocephalic
Neck-supple, no JVD, no bruit
Heart-regular rate and rhythm-no murmurs, rubs or gallops
Chest-clear to auscultation, no wheezes, crackles
Back-no tenderness
Abdomen-soft, nontender, nondistended, no hepatosplenomegaly
Extremities-no cyanosis, clubbing, edema and good peripheral pulses
Integument-intact, no rashes, lesions or ecchymosis
Neurologically moving extremities but lethargic
Assessment
-
84-year-old female with a history of hypertension, dementia, Gar, reflux presented with fatigue and weakness as well as anorexia and somnolence found to be hypotensive requiring pressors-data collection technician consulted for sepsis/pressors/critical care
management 05/25/2025
Sepsis with hypotension unresponsive to fluids requiring pressors
Hyponatremia
Transaminitis
Conditions present prior to admission:
Interstitial cystitis.
GAR.
Hypercalcemia.
Diabetes.
Dementia.
Osteoporosis.
Hypertension.
GERD.
Rotator cuff repair.
Cataract. Right TKR. Tonsillectomy. Cystoscopy. Glaucoma.
Plan
Admit patient to medical intensive care unit for persistent hypotension despite fluid resuscitation requiring pressors
Supplement oxygen as needed
High flow oxygen if needed
BiPAP if necessary
Intubate and mechanically ventilate if necessary
Aspiration precautions
Nebulizers if needed
Chest x-ray pending
CT abdomen pending
Obtain cultures
Empiric antibiotics-vancomycin and Zosyn initiated
MRSA screen
Consider Infectious disease consultation
Monitor leukocytosis
Fluid resuscitation with 30 mL/kg crystalloid-preferably lactated ringer-(less JAYASHREE) with subsequent boluses as needed
Monitor lactate
Follow CVP if possible
Attempt noninvasive bedside tissue perfusion evaluation to see if fluid bolus responsive
Measure pulse pressure and stroke volume variation if patient on ventilator, passively breathing without arrhythmia and with temporary large tidal volume ventilation and if > 13% then likely fluid bolus responsive
If patient active then consider measuring bedside leg lift for 3 minutes and if cardiac output increases or if there is a rise of 2-4 on end-tidal CO2 then fluid bolus
If bedside ultrasound available then measure IVC diameter variation to evaluate for fluid bolus responsiveness
Begin pressors as needed for MAP goal of 65-Norepinephrine first, then Vasopressin and consider Angiotensin II if continues to be hypotensive
Consider methylene blue if available-specific inhibitor of induced nitric oxide synthase iNOS and its downstream enzyme soluble guanylate cyclase-noninferiority study shown to reduce time to vasopressor discontinuation, decreased ICU length of stay,
hospital stay but no change in mortality-published Critical Care 02/05/2023
If persistently hypotensive then consider checking random cortisol-hydrocortisone if random less than 3, if 3-15 then consider ACTH stimulation test
If persistently hyperthermic then correcting hyperthermia can decrease pressor requirements, increased chances of reversal of shock and decrease mortality
DVT prophylaxis-on Lovenox
GI prophylaxis-on Protonix
Early nutrition if possible
Early mobilization/bedside range of motion
Critical care statement: A total of 65 minutes of critical care time was provided for this patient today. This includes management of unstable vital signs, evaluation of the patient at bedside, reviewing the patient's pertinent medical records
including radiographs, microbiology, laboratory evaluations, and discussion with primary team, consultants, pharmacy, nutrition, physical therapy, case management, charge nurse, critical care nursing, and respiratory therapy.
Diagnostic data:
Chest x-ray 03/03/2024-NAD
Chest x-ray 05/25/2025-left basilar atelectasis
CT abdomen and pelvis 05/25/2025-no acute abdominal process identified, mild right axillary adenopathy, hepatic fatty infiltration and diverticulosis without diverticulitis
Data Reviewed
-
EKG: Report reviewed by me
Radiology: Report reviewed by me
CT Scan: Report reviewed by me
Critical Care Time (in minutes): 65
--- NOTE | 2025-05-25 16:19 | PHA.VAN.IN ---
Assessment
- Assessment
Renal Function: SCR Appears Elevated from baseline (0.7)
Concomitant Antimicrobials: piperacillin/tazobactam
Plan
- Plan
Initial / Loading Dose: vanc 1500mg pending administration
Maintenance Regimen: dosing by level for now
Monitoring: random level 05/26 0600
Pharmacokinetics Vancomycin I
- -
Patient Age: 84
Patient Sex: Female
Vancomycin Day #: 1
Indication: Other
Requesting Provider: Jen Vale
Pertinent Antimicrobial Allergies:
no pertinent antimicrobial allergies
Height / Weight:
Height 4 ft 10 in
Actual Weight 60.78 kg
- Vital Signs / Lab Results
Temp Pulse Resp BP Pulse Ox
98.4 F 75 20 78/69 96
05/25/25 15:14 05/25/25 16:02 05/25/25 16:02 05/25/25 16:02 05/25/25 16:02
Lab Results - Hematology
05/25/25
11:49
WBC 4.8
Lab Results - Chemistry
05/25/25
11:50
BUN 39 H
Creatinine 1.0
Estimated Creat Clear 33
Albumin 3.7
05/25/25
11:49
Lactic Acid 2.1 H
Lab Results - Urine
05/25/25
11:49
Urine Nitrite (Reflex) Negative
Leukocyte Esterase Rfl Negative
Urine WBC (Reflex) 6-10
Ur Squamous Epith Cells 0-2
Urine Bacteria (Reflex) Moderate A
Microbiology Results
05/25/25 13:10 Influenza Types A & B (LAURY) - Final
Nasal Swab Negative for Influenza A & B, NAAT
Negative results must be combined with clinical observations
and patient history.
Nucleic Acid Amplification test (NAAT)performed on the
[employer] platform.
[2025-05-25] MEDS: VANCOCIN 530 MG IV (16:53)
--- NOTE | 2025-05-25 17:24 | PTCARENOTE ---
arrived from ED via stretcher, assisted into bed. forgetful, very little recall, insisting she is fine, that she can get OOB on her own, looked out the window 'this is the worst view I've ever had'. Bed alarm activve. daughter present, helpful
with reorienting, notes patient is in early stages of forgetfulness. levophed initially at 3 mcg/min, unable to get BP reliably, attempted LW, pt c/o cuff, 'I don't want it' 'I'll just do what dad did and rip everything off'. Reassured she is safe,
that she is being cared for, more agreeable with care. abx infusing. labs sent. ordered and awaiting dinner. see rest of admission documentation. call cochran in reach. requires occasional reminders to keep arm straight for IV to infuse.
[2025-05-25 17:27] LABS: APTT 25.7 Sec (23.4-35.0); INR 1.06; PT 14.2 Sec (11.4-14.6)
--- NOTE | 2025-05-25 17:35 | PTCARENOTE ---
BP manual 82/40, levophed had been paused briefly for very high unreliable readings (due to agitation and dissatisfaction with BP cuff), levophed restarted for MAP 52.
[2025-05-25] MEDS: LOVENOX 40 MG SC (17:57)
--- NOTE | 2025-05-25 18:24 | PTCARENOTE ---
oob again to BSC, continually bending arm, agreed to a new IV site, placed RW tolerated well. presently eating dinner. requires encouragement to relax/tolerate bp readings. titrating levophed.
--- NOTE | 2025-05-25 20:35 | PTCARENOTE ---
Pt received at 19:00, daughter at bedside. Pt Ox1-2. Disoriented to time and forgetful to place, stated multiple times 'No, I don't know where I am, but I am most certainly not at home.' OOB to commode x1 assist, gait unsteady at times. SR with 1st
degree AVB. Levophed titrated to maintain MAP > 65. 2L NC, pulse ox 97%. Breath sounds clear, diminised at the bases. +bowel sounds, no BM. Urinary frequency/urgency, small amounts of yellow urine. Voided 50ml, PVR for 140ml. Safe environment
maintained, call cochran in reach, pt turning and repositioning self frequently.
[2025-05-25] MEDS: LEXAPRO 15 MG PO (20:48)
[2025-05-25] MEDS: ZOSYN 50 IV (20:48)
[2025-05-26] VITALS (15 sets, daily range): BP systolic 82–110; BP diastolic 43–90; PULSE 83; O2SAT 94; BMI 27.3
[2025-05-26] MEDS: ZOSYN 50 IV ×4 (02:57→20:01)
--- NOTE | 2025-05-26 03:17 | PTCARENOTE ---
Pt now consistently oriented to location, remains forgetful--able to reorient. Levophed off at this time.
[2025-05-26 04:51] LABS: Hematocrit 28.1 % (37.0-47.0); Hemoglobin 10.1 g/dL (12.0-16.0); Mean Corp Hgb Conc. 35.9 g/dL (33.0-37.0); Mean Corpuscular Volume 84.4 fL (81.0-99.0); Platelet Count 125 10^3/uL (130-400); Red Cell Dist. Width 13.0 % (11.5-14.5)
[2025-05-26 05:02] LABS: Blood Urea Nitrogen 16 mg/dl (7-17); Calcium 7.4 mg/dl (8.4-10.2); Carbon Dioxide 18 mmol/L (22-30); Chloride 104 mmol/L (98-107); Estimated Creatinine Clearance 54 ml/min; Glucose 114 mg/dl (70-99); Magnesium 2.1 mg/dl (1.6-2.3); Potassium 3.4 mmol/L (3.5-5.1); Sodium 129 mmol/L (135-145); eGFR > 60.00
[2025-05-26] MEDS: KCL 260 MEQ IV (06:47)
--- NOTE | 2025-05-26 07:13 | W.PN.INTV ---
Today's Communication / Plan
Recommendations
Recommendations are not final until attending note/attestation.
Appropriate to downgrade from ICU today
Continue Zosyn and Vancomycin, f/u pending cultures
Assessment
-
84-year-old female with a history of hypertension, dementia, GAR, reflux presented with fatigue and weakness as well as anorexia and somnolence found to be hypotensive requiring pressors, admitted to ICU on 05/25/2025.
Sepsis with hypotension
- off pressors since , 05/25/25
- BP measurements are within normal limits
-
Hyponatremia
- Na+ 129,
- Continue normal saline
Transaminitis
- History of GAR, likely chronic
Conditions present prior to admission:
Interstitial cystitis.
GAR.
Hypercalcemia.
Diabetes.
Dementia.
Osteoporosis.
Hypertension.
GERD.
Rotator cuff repair.
Cataract. Right TKR. Tonsillectomy. Cystoscopy. Glaucoma.
Plan
Neuro:RASS of 0. No sedation, denies pain.
CV: has not required pressors since , 05/25/2025.
Respiratory: Not intubated
ID: Zosyn, vancomycin, f/u pending cultures
Renal/Electrolytes: Continue normal saline
Heme/Onc: lovenox
GI: pantoprazole
Downgrade from ICU today because off pressors, and last BP (108/90) was within normal limits.
Diagnostic data:
Chest x-ray 03/03/2024-NAD
Chest x-ray 05/25/2025-left basilar atelectasis
CT abdomen and pelvis 05/25/2025-no acute abdominal process identified, mild right axillary adenopathy, hepatic fatty infiltration and diverticulosis without diverticulitis
Subjective Dataa
Subjective Data
Date of Service:
Date of Service: May 26, 2025
Subjective:
84-year-old female with a history of hypertension, dementia, GAR, reflux presented with fatigue and weakness as well as anorexia and somnolence found to be hypotensive requiring pressors, admitted to ICU on 05/25/2025.
No acute events overnight. Has been off pressors since 19:30, 05/25.
This morning, she feels feels well, denies dyspnea, chest pain. Denies lightheadedness or dizziness. Denies abdominal pain.
Review of Systems
General: Other (no acute distress)
Cardiopulmonary: Dyspnea (negative) and Chest Pain (negative)
GI: Abdominal Pain (negative)
Neuro: Dizziness (negative)
Objective Data
Data Reviewed
Vital Signs / I&O / Oxygen:
Vital Signs
Temp Pulse Resp BP Pulse Ox
100.1 F 83 19 100/48 92
05/26/25 03:38 05/26/25 02:30 05/26/25 02:30 05/26/25 02:04 05/25/25 22:15
Intake and Output
05/25/25 05/26/25 05/27/25
06:59 06:59 06:59
Intake Total 1850.1 / 1850.1
Output Total 875 / 875
Balance 975.1 / 975.1
SaO2 92
Nasal Cannula flow liters per 2
minute
Physical Exam
General: Comfortable
HEENT: Normocephalic
Cardiovascular: S1-S2, Regular Rhythm, Murmur (no murmurs on my exam) and Peripheral Edema (no peripheral edema on my exam)
Respiratory: Clear (CTAB on my exam)
GI: Soft, Non Distended and Non Tender
Neurology: Awake, Alert and Other (able to move all 4 extremities)
Skin: Warm and Dry
Labs/Micro/Reports
Lab Data
05/26/25 04:17
05/26/25 04:17
Laboratory Results
05/25/25
17:06
PT 14.2
INR 1.06
APTT 25.7
Microbiology
05/25/25 13:10 Nasal Swab Influenza Types A & B (LAURY) - Final
Negative for Influenza A & B, NAAT
Negative results must be combined with clinical observations
and patient history.
Nucleic Acid Amplification test (NAAT)performed on the
[employer] platform.
Labs:
WBC of 4.1 from 4.8 prior day
Hgb of 10.1 from 12.2 prior day
Na+ of 129 from 127 prior day
Ca2+ of 7.4 from 8.5 prior
Care Review
-
Total Time Spent with Patient (in minutes): 20
--- NOTE | 2025-05-26 07:37 | W.PN.INTV ---
Today's Communication / Plan
Recommendations
Wean and norepinephrine
Finite course of antibiotics
Decrease IV fluids
Increase activity
If weaned off norepinephrine then transfer out of ICU-call pulmonary if respiratory issues arise
Assessment
-
84-year-old female with a history of hypertension, dementia, Gar, reflux presented with fatigue and weakness as well as anorexia and somnolence found to be hypotensive requiring pressors-dye and chemical coordinator consulted for sepsis/pressors/critical care
management 05/25/2025
Sepsis with hypotension unresponsive to fluids requiring pressors
Hyponatremia
Transaminitis
Conditions present prior to admission:
Interstitial cystitis.
GAR.
Hypercalcemia.
Diabetes.
Dementia.
Osteoporosis.
Hypertension.
GERD.
Rotator cuff repair.
Cataract. Right TKR. Tonsillectomy. Cystoscopy. Glaucoma.
Plan
Patient's hemodynamics have improved-pressors weaned
Supplement oxygen as needed-currently on room air-94% saturation
Aspiration precautions
Nebulizers if needed
Chest x-ray 05/25/2025-NAD
CT abdomen 05/25/2025-no acute intra-abdominal process, mild right axillary adenopathy, hepatic fatty infiltration, diverticulosis
Cultures reviewed-unrevealing thus far
Influenza negative
Blood cultures pending
Urine culture pending
Empiric antibiotics-vancomycin and Zosyn initiated-discontinue vancomycin if MRSA screen negative
MRSA screen
Consider Infectious disease consultation
Monitor leukocytosis
Decrease IV fluids
Lactate trended
Norepinephrine wean
DVT prophylaxis-on Lovenox
GI prophylaxis-on Protonix
Begin nutrition
Early mobilization/bedside range of motion
Reviewed with daughter at the bedside during multidisciplinary rounds
If able to be weaned off norepinephrine then transfer out of ICU-call pulmonary if respiratory issues arise
Critical care statement: A total of 35 minutes of critical care time was provided for this patient today. This includes management of unstable vital signs, evaluation of the patient at bedside, reviewing the patient's pertinent medical records
including radiographs, microbiology, laboratory evaluations, and discussion with primary team, consultants, pharmacy, nutrition, physical therapy, case management, charge nurse, critical care nursing, and respiratory therapy.
Diagnostic data:
Chest x-ray 03/03/2024-NAD
Chest x-ray 05/25/2025-left basilar atelectasis
CT abdomen and pelvis 05/25/2025-no acute abdominal process identified, mild right axillary adenopathy, hepatic fatty infiltration and diverticulosis without diverticulitis
Subjective Dataa
Subjective Data
Date of Service:
Date of Service: May 26, 2025
Chief Complaint: C Wpf Developer Follow Up and Pulmonary Follow Up
Subjective:
No complaints of shortness of breath, chest pain, productive cough, abdominal pain, leg swelling or weakness
Review of Systems
General: Other (Per HPI)
Objective Data
Data Reviewed
Vital Signs / I&O / Oxygen:
Vital Signs
Temp Pulse Resp BP Pulse Ox
99.6 F 83 19 100/48 92
05/26/25 07:31 05/26/25 02:30 05/26/25 02:30 05/26/25 02:04 05/25/25 22:15
Intake and Output
05/25/25 05/26/25 05/27/25
06:59 06:59 06:59
Intake Total 1850.1 / 1850.1
Output Total 875 / 875
Balance 975.1 / 975.1
SaO2 92
Nasal Cannula flow liters per 2
minute
Physical Exam
General: Respiratory Distress (n) and Comfortable
HEENT: Normocephalic, Anicteric and Moist Mucous Membranes
Cardiovascular: Regular Rhythm
Respiratory: Wheeze (n), Crackles (n), Rhonchi (n), Non-Labored Respirations, Accessory Resp Muscle Use (n) and Stridor (n)
GI: Soft, Non Distended and Non Tender
Neurology: Awake, Alert and No Motor Deficits
Skin: Warm, Good Color, Cyanosis (n), Jaundice (n) and Rash (n)
Labs/Micro/Reports
Lab Data
05/26/25 04:17
05/26/25 04:17
Laboratory Results
05/25/25
17:06
PT 14.2
INR 1.06
APTT 25.7
Microbiology
05/25/25 13:10 Nasal Swab Influenza Types A & B (LAURY) - Final
Negative for Influenza A & B, NAAT
Negative results must be combined with clinical observations
and patient history.
Nucleic Acid Amplification test (NAAT)performed on the
[employer] platform.
[2025-05-26] MEDS: NSS 1000 IV ×2 (07:56→20:00)
[2025-05-26] MEDS: PROTONIX 20 MG PO (07:56)
--- NOTE | 2025-05-26 08:41 | PHA.VAN.FU ---
Vancomycin Assessment / Plan
- Assessment
Renal Function: Stable
WBC's are: Stable
In the past 24 hrs, patient has been: Afebrile
Concomitant Antimicrobials: piperacillin/tazobactam
- Assessment - Therapeutic Drug Monitoring
Random Level: 10.6 - drawn ~11H after 1500mg loading dose
- Dosing Plan
Adjust Regimen to: Vanc 1000mg Q24H - first dose today then 05/27 06
New Regimen Predicts: AUC (504), Peak (35), Trough (11)
- Monitoring Plan
No level(s) ordered at this time: consider levels in next few days
- Follow Up
Pharmacy will continue to follow.
Vancomycin Follow UP
- -
Patient Age: 84
Patient Sex: Female
Vancomycin Day #: 2
Indication: Other
Requesting Provider: Jen Vale
Pertinent Antimicrobial Allergies:
clindamycin - diarrhea (ADR)
metronidazole - diarrhea (ADR)
Height / Weight:
Height 4 ft 10 in
Actual Weight 59.2 kg
- Vital Signs / Lab Results
Temp Pulse Resp BP Pulse Ox
99.6 F 83 19 100/48 92
05/26/25 07:31 05/26/25 02:30 05/26/25 02:30 05/26/25 02:04 05/25/25 22:15
Lab Results - Hematology
05/25/25 05/26/25
11:49 04:17
WBC 4.8 4.1 L
Lab Results - Chemistry
05/25/25 05/26/25
11:50 04:17
BUN 39 H 16
Creatinine 1.0 0.6
Estimated Creat Clear 33 54
Albumin 3.7
05/25/25 05/25/25 05/25/25
11:49 17:05 20:07
Lactic Acid 2.1 H 1.3 Cancelled
Lab Results - Urine
05/25/25
11:49
Urine Nitrite (Reflex) Negative
Leukocyte Esterase Rfl Negative
Ur Squamous Epith Cells 0-2
Microbiology Results
05/25/25 13:10 Influenza Types A & B (LAURY) - Final
Nasal Swab Negative for Influenza A & B, NAAT
Negative results must be combined with clinical observations
and patient history.
Nucleic Acid Amplification test (NAAT)performed on the
[employer] platform.
Therapeutic Drug Monitoring
Random Vancomycin 10.6 ug/ml 05/26/25 04:17
[2025-05-26] MEDS: VANCOCIN 200 IV (10:30)
[2025-05-26 10:37] LABS: Ammonia 9 umol/L (9-30)
--- NOTE | 2025-05-26 12:30 | CM ---
Initial assessment completed with patient with daughter in room. Patient lives alone in a 2 story plus basement home with B/B on 2nd and 1/2 bath on 1st with 2 steps to enter. 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 She
does have a RW and SPC but does not use. No in-home services. Does have [facility]-PO[facility]. No service. PCP is Dr. Elisabeth Powell. Pharmacy is [facility] on [address] in [place]. Discharge POC: Anticipate home with no needs unless requires IV/AB.
--- NOTE | 2025-05-26 12:34 | W.PN.HOSP.TC ---
Today's Communication/Plan
-
Monitor vitals
See plan
Transfer to the floors
Continue to hold BP meds
Follow cultures
Follow fever curve
Continue antibiotics
Discussed with daughter at bedside
Assessment / Plan
Assessment / Plan
General: Well Developed, Well Nourished and No Apparent Distress
HEENT: NormoCephalic, Moist mucous membranes and Atraumatic
Respiratory: Clear
Cardiac: S1/S2 and Regular Rhythm; No Murmur or Rub
GI: Soft, Non Tender, Non Distended and Normal Bowel Sounds
Musculoskeletal: No Edema
Neuro: AO x 3 and Nonfocal/grossly intact
Psych: Calm
Septic Shock
- Lactic 2.1, hypotension
- UA negative, COVID-negative
- Chest x-ray without pneumonia
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
Continue with empiric antibiotics for now
Follow urine culture
Was started on Levophed, now off
Suspect dehydration on admission
follow bcx; unclear source at this time
Lactic acidosis
Resolved
Hypokalemia
Replete
#Hypotension secondary to sepsis
- On Levophed
# Hyponatremia likely hypovolemic
- Sodium now 129, slowly improved
- Normal saline continue
# Chronic transaminitis
# History of Lundberg
- AST 43, ALT 67
ammonia lvl 9
# GERD
-PPI continued
# CODE STATUS
- Full code
# DVT prophylaxis
- Lovenox subcu
I spent a total of 51 minutes with the patient or on the floor. More than 50% of this time involved counseling and coordination of care.
Anticipated Discharge: 24 - 48 hours
Subjective/Interval History
-
Date of Service: May 26, 2025
Denies pain
Objective Data
-
Labs:
Laboratory Results
05/26/25
04:17
WBC 4.1 L
Hgb 10.1 L
Hct 28.1 L
Plt Count 125 L
Sodium 129 L
Potassium 3.4 L
Chloride 104
Carbon Dioxide 18 L
BUN 16
Creatinine 0.6
Glucose 114 H
Calcium 7.4 L
Vital Signs:
Vital Signs
Temp Pulse Resp BP Pulse Ox
98.6 F 67 16 105/53 94
05/26/25 11:35 05/26/25 11:35 05/26/25 11:35 05/26/25 11:35 05/26/25 11:35
I&O
05/25/25 05/26/25 05/27/25
06:59 06:59 06:59
Intake Total 1850.1 / 1996.6 720.0 / 720.0
Output Total 875 / 875
Balance 975.1 / 1122.6 720.0 / 720.0
[2025-05-26] MEDS: LOVENOX 40 MG SC (17:50)
[2025-05-26] MEDS: LEXAPRO 15 MG PO (20:00)
[2025-05-27] MEDS: ZOSYN 50 IV ×4 (01:25→20:48)
[2025-05-27] MEDS: VANCOCIN 200 IV (05:55)
[2025-05-27] MEDS: NSS 1000 IV (05:55)
[2025-05-27 07:39] LABS: Hematocrit 28.5 % (37.0-47.0); Hemoglobin 10.0 g/dL (12.0-16.0); Mean Corp Hgb Conc. 35.1 g/dL (33.0-37.0); Mean Corpuscular Volume 83.8 fL (81.0-99.0); Red Cell Dist. Width 13.4 % (11.5-14.5)
[2025-05-27 07:44] LABS: Platelet Count 151 10^3/uL (130-400)
[2025-05-27] MEDS: PROTONIX 20 MG PO (07:51)
[2025-05-27 07:54] LABS: ALT (SGPT) 36 U/L (0-35); AST (SGOT) 29 U/L (14-36); Albumin 2.9 g/dl (3.5-5.0); Alkaline Phosphatase 39 U/L (38-126); Blood Urea Nitrogen 7 mg/dl (7-17); Calcium 7.6 mg/dl (8.4-10.2); Carbon Dioxide 20 mmol/L (22-30); Chloride 106 mmol/L (98-107); Estimated Creatinine Clearance 54 ml/min; Glucose 150 mg/dl (70-99); Potassium 3.2 mmol/L (3.5-5.1); Sodium 130 mmol/L (135-145); Total Protein 5.2 g/dl (6.3-8.2); eGFR > 60.00
[2025-05-27 07:56] VITALS: BP 112/58
--- NOTE | 2025-05-27 08:06 | PHA.VAN.FU ---
Vancomycin Assessment / Plan
- Assessment
Renal Function: Stable
WBC's are: Stable
In the past 24 hrs, patient has been: Afebrile
Concomitant Antimicrobials: piperacillin/tazobactam
- Dosing Plan
Continue: Vanc 1000mg Q24H
- Monitoring Plan
No level(s) ordered at this time: consider levels in next few days
- Follow Up
Pharmacy will continue to follow.
Vancomycin Follow UP
- -
Patient Age: 84
Patient Sex: Female
Vancomycin Day #: 3
Indication: Other
Requesting Provider: Jen Vale
Pertinent Antimicrobial Allergies:
clindamycin - diarrhea (ADR)
metronidazole - diarrhea (ADR)
Height / Weight:
Height 4 ft 10 in
Actual Weight 59.2 kg
- Vital Signs / Lab Results
Temp Pulse Resp BP Pulse Ox
98.2 F 87 17 112/58 96
05/27/25 07:56 05/27/25 07:56 05/27/25 07:56 05/27/25 07:56 05/27/25 07:56
Lab Results - Hematology
05/25/25 05/26/25 05/27/25
11:49 04:17 07:11
WBC 4.8 4.1 L 4.4 L
Lab Results - Chemistry
05/25/25 05/26/25 05/27/25
11:50 04:17 07:11
BUN 39 H 16 7
Creatinine 1.0 0.6 0.6
Estimated Creat Clear 33 54 54
Albumin 3.7 2.9 L
05/25/25 05/25/25 05/25/25
11:49 17:05 20:07
Lactic Acid 2.1 H 1.3 Cancelled
Microbiology Results
05/25/25 12:22 Blood Culture - Preliminary
Blood/Venous No Growth in 24 hours- Final report to follow
05/25/25 11:50 Blood Culture - Preliminary
Blood/Venous No Growth in 24 hours- Final report to follow
05/25/25 11:49 Urine Culture - Final
Urine NO GROWTH
05/25/25 13:10 Influenza Types A & B (LAURY) - Final
Nasal Swab Negative for Influenza A & B, NAAT
Negative results must be combined with clinical observations
and patient history.
Nucleic Acid Amplification test (NAAT)performed on the
[employer] platform.
Therapeutic Drug Monitoring
Random Vancomycin 10.6 ug/ml 05/26/25 04:17
[2025-05-27 08:33] LABS: Absolute Neutrophils -Man Diff 3.3 10^3/uL (1.4-6.5)
[2025-05-27 08:34] LABS: Normal RBC Morphology No; Platelets Checked Yes; Total Cells Counted 100; Vacuolated Segs 1+
[2025-05-27] MEDS: KCL PO (09:43)
[2025-05-27] MEDS: KCL 40 MEQ PO (11:56)
--- NOTE | 2025-05-27 11:59 | PN.CDI ---
CDI
- -
CDI:
Physician Documentation Request
Admit Date: 05/25/25 15:02
Dear Doctor Xavier,
H&P states 'sepsis, unclear source'
T max 100.3, presenting heart rates 74-84, respiratory rates 16-25
05/25/25 05/26/25 05/27/25
11:49 04:17 07:11
WBC 4.8 4.1 L 4.4 L
Sepsis
Systemic manifestations of infection, with 2 or more SIRS criteria which include:
-Fever > 100.9��F or hypothermia < 96.8��F
-Leukocytosis WBC > 12,000 or leukopenia, WBC < 4,000, or > 10% bands
-Tachycardia- > 90 beats/minute
-Tachypnea- RR > 20 breaths/minute or PaCO2 < 32mmHg
Source: Merck Manual 2013
Based on the above information and the recognized standard for sepsis could you please verify this diagnoses is still accurate and reflective of the patient�s condition to ensure quality of the medical record.
Please clarify in the Progress Notes:
�Sepsis is/was present and is a clinical diagnosis based on (please include this additional support in the medical record)
�After study sepsis has been ruled out
�Other
Use of terms such as suspected, likely, concern for, or probable (associated with a specific diagnosis that is being evaluated, monitored, or treated as if it exists) are acceptable and can be coded in the inpatient setting, when documented at the
time of discharge.
Thank you,
Franci Washburn RN, BSN
CDI Specialist
tiger text
Please use your independent medical judgment in providing your response.
--- NOTE | 2025-05-27 12:57 | W.PN.HOSP.TC ---
Today's Communication/Plan
-
Monitor vitals
See plan
Continue with empiric antibiotics
Continue to follow cultures
Continue to hold BP med
Assessment / Plan
Assessment / Plan
General: Well Developed, Well Nourished and No Apparent Distress
HEENT: NormoCephalic, Moist mucous membranes and Atraumatic
Respiratory: Clear
Cardiac: S1/S2 and Regular Rhythm; No Murmur or Rub
GI: Soft, Non Tender, Non Distended and Normal Bowel Sounds
Musculoskeletal: No Edema
Neuro: AO x 3 and Nonfocal/grossly intact
Psych: Calm
Septic Shock
Sepsis is a clinical diagnosis based on tachycardia above 90s multiple times and tachypnea in 20s while patient was being resuscitated with fluids
- Lactic 2.1, hypotension
- UA negative, COVID-negative
- Chest x-ray without pneumonia
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
Continue with empiric antibiotics for now
Follow urine culture
Was started on Levophed, now off
Suspect dehydration on admission
follow bcx; unclear source at this time. If no potential source found then we will treat with p.o. empiric antibiotics for total 7 days
Lactic acidosis
Resolved
Hypokalemia
Replete
#Hypotension secondary to sepsis
- Now off pressors
Continue to hold lisinopril, hydrochlorothiazide
# Hyponatremia likely hypovolemic
- Slowly improving
# Chronic transaminitis
# History of Lundberg
- AST 43, ALT 67
ammonia lvl 9
# GERD
-PPI continued
# CODE STATUS
- Full code
# DVT prophylaxis
- Lovenox subcu
Anticipated Discharge: Within 24 hours
Subjective/Interval History
-
Date of Service: May 27, 2025
Denies pain
Objective Data
-
Labs:
Laboratory Results
05/27/25
07:11
WBC 4.4 L
Hgb 10.0 L
Hct 28.5 L
Plt Count 151 D
Sodium 130 L
Potassium 3.2 L
Chloride 106
Carbon Dioxide 20 L
BUN 7
Creatinine 0.6
Glucose 150 H
Calcium 7.6 L
Total Bilirubin 0.7
AST 29
ALT 36 H
Alkaline Phosphatase 39
Vital Signs:
Vital Signs
Temp Pulse Resp BP Pulse Ox
98.2 F 87 17 112/58 96
05/27/25 07:56 05/27/25 07:56 05/27/25 07:56 05/27/25 07:56 05/27/25 07:56
I&O
05/26/25 05/27/25 05/28/25
06:59 06:59 06:59
Intake Total 1850.1 / 1996.6 2310.0 / 2310.0
Output Total 875 / 875
Balance 975.1 / 1122.6 2310.0 / 2310.0
[2025-05-27 14:42] VITALS: BP 105/49
--- NOTE | 2025-05-27 15:46 | CM ---
Chart reviewed and will follow with patient progress.
Plan; Home when stable.
[2025-05-27 16:00] VITALS: BP 133/61
[2025-05-27] MEDS: LOVENOX SC (17:22)
[2025-05-27] MEDS: LEXAPRO 15 MG PO (23:10)
[2025-05-27 23:36] VITALS: BP 132/98
[2025-05-28] MEDS: ZOSYN 50 IV ×2 (01:48→09:18)
[2025-05-28] MEDS: VANCOCIN 200 IV (05:55)
[2025-05-28 07:56] LABS: Hematocrit 26.9 % (37.0-47.0); Hemoglobin 9.6 g/dL (12.0-16.0); Mean Corp Hgb Conc. 35.7 g/dL (33.0-37.0); Mean Corpuscular Volume 83.5 fL (81.0-99.0); Platelet Count 171 10^3/uL (130-400); Red Cell Dist. Width 13.4 % (11.5-14.5)
[2025-05-28 08:05] VITALS: BP 124/57
[2025-05-28 08:10] LABS: Nucleated Red Blood Cells % 0 %
[2025-05-28 08:31] LABS: ALT (SGPT) 32 U/L (0-35); AST (SGOT) 35 U/L (14-36); Albumin 2.8 g/dl (3.5-5.0); Alkaline Phosphatase 41 U/L (38-126); Blood Urea Nitrogen 6 mg/dl (7-17); Calcium 7.9 mg/dl (8.4-10.2); Carbon Dioxide 20 mmol/L (22-30); Chloride 105 mmol/L (98-107); Estimated Creatinine Clearance 54 ml/min; Glucose 134 mg/dl (70-99); Potassium 3.2 mmol/L (3.5-5.1); Sodium 130 mmol/L (135-145); Total Protein 5.1 g/dl (6.3-8.2); eGFR > 60.00
[2025-05-28] MEDS: PROTONIX 20 MG PO (09:18)
[2025-05-28] MEDS: KCL 40 MEQ PO (11:15)
--- NOTE | 2025-05-28 12:30 | W.PN.HOSP.TC ---
Today's Communication/Plan
-
Monitor vital signs
see plan
Switch antibiotics to oral
Replete potassium
Discharge today
Hold BP meds on discharge
Discussed with daughter
Time of discharge 37 minutes
Assessment / Plan
Assessment / Plan
General: Well Developed, Well Nourished and No Apparent Distress
HEENT: NormoCephalic, Moist mucous membranes and Atraumatic
Respiratory: Clear
Cardiac: S1/S2 and Regular Rhythm; No Murmur or Rub
GI: Soft, Non Tender, Non Distended and Normal Bowel Sounds
Musculoskeletal: No Edema
Neuro: AO x 3 and Nonfocal/grossly intact
Psych: Calm
Septic Shock
Sepsis was a clinical diagnosis on admission based on tachycardia above 90s multiple times and tachypnea in 20s while patient was being resuscitated with fluids
- Lactic 2.1, hypotension
- UA negative, COVID-negative
- Chest x-ray without pneumonia
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
Will discharge on 5 more days of antibiotics
Urine culture no growth
Was started on Levophed, now off
Suspect dehydration on admission
follow bcx NGTD; unclear source at this time. If no potential source found then we will treat with p.o. empiric antibiotics for total 7 days
Lactic acidosis
Resolved
Hypokalemia
Replete
#Hypotension secondary to sepsis
- Now off pressors
Continue to hold lisinopril, hydrochlorothiazide
# Hyponatremia likely hypovolemic
- Slowly improving
# Chronic transaminitis
# History of Lundberg
- AST 43, ALT 67
ammonia lvl 9
# GERD
-PPI continued
# CODE STATUS
- Full code
# DVT prophylaxis
- Lovenox subcu
Anticipated Discharge: Today
Subjective/Interval History
-
Date of Service: May 28, 2025
Denies pain
Objective Data
-
Labs:
Laboratory Results
05/28/25
07:12
WBC 4.8
Hgb 9.6 L
Hct 26.9 L
Plt Count 171
Sodium 130 L
Potassium 3.2 L
Chloride 105
Carbon Dioxide 20 L
BUN 6 L
Creatinine 0.5 L
Glucose 134 H
Calcium 7.9 L
Total Bilirubin 0.6
AST 35
ALT 32
Alkaline Phosphatase 41
Vital Signs:
Vital Signs
Temp Pulse Resp BP Pulse Ox
99.1 F 76 20 124/57 94
05/28/25 08:05 05/28/25 08:05 05/28/25 08:05 05/28/25 08:05 05/28/25 08:05
I&O
05/27/25 05/28/25 05/29/25
06:59 06:59 06:59
Intake Total 2310.0 / 2310.0 960 / 960 240 / 240
Output Total 100 / 100
Balance 2310.0 / 2310.0 960 / 960 140 / 140
--- NOTE | 2025-05-28 12:40 | W.DCSUMMARY ---
Discharge Summary
Discharge Data
Date of Admission: 05/25/25
Date of Discharge: 05/28/25
-
Pending Results: No
Hospital Course
84-year-old female with past medical history of chronic transaminitis, Lundberg, GERD, hypertension came to the hospital with hypotension. Patient symptoms appeared to be secondary to possible septic shock and patient was initially started on empiric
antibiotics. Patient also went to the ICU initially requiring pressors. She was able to be weaned off Levophed and was then transferred to the floor. Patient did not had any clear source of infection however given symptoms she was treated with
antibiotics. She also appeared dehydrated on this admission and was treated with fluids. She initially had lactic acidosis which was resolved. Given her hypotension her blood pressure medications were held on discharge and she was instructed to
follow-up closely with her primary care provider for further medication titration. CT abdomen/pelvis did not show any signs of acute infection other than questionable mild mesenteric panniculitis. Once patient symptoms continue to improve over
time, she was then discharged home with instructions to follow-up with all her physicians outpatient.
Discharge Plan
-
Patient Disposition: Home (Routine Discharge)
Discharge Diagnosis/Procedures: Sepsis of unclear origin
Hyponatremia
Hypokalemia
Dehydration
Hypotension
Lactic acidosis
Chronic transaminitis
Diet: As tolerated
Activity: As tolerated
Driving Restrictions: As prior to admission
Bathing Restrictions: None
Activity Restrictions/Additional Instructions:
Continue to monitor your blood pressure twice daily and write those numbers down. Please follow-up with your primary care provider and nephrology outpatient
Please stop blood pressure medication starting with amlodipine once blood pressure persistently greater than 140/90
Referrals:
Elisabeth Powell MD [Family Provider, Internal Medicine] - in one week
Natali Coates MD [Active, Nephrology]
Prescriptions:
New
Probiotic 10 billion cell capsule
10,000 mmu cells PO DAILY Qty: 10 0RF
amoxicillin-pot clavulanate 875-125 mg tablet
1 tab PO BID Qty: 10 0RF
Continued
lansoprazole 15 mg Capsule,Delayed Release(Dr/Ec)
15 mg PO DAILY
escitalopram oxalate [Lexapro] 5 mg Tablet
15 mg PO HS
therapeutic multivitamin Tablet
1 tab PO DAILY
cholecalciferol (vitamin D3) [Vitamin D3] 25 mcg (1,000 unit) Tablet
25 mcg PO DAILY
cranberry extract [Ellura] 200 mg Capsule
200 mg PO DAILY
Held
amlodipine [Norvasc] 10 mg Tablet
10 mg PO DAILY
Hold Instructions: Restart when blood pressure greater than 140/90
lisinopril-hydrochlorothiazide 20-25 mg Tablet
1 tab PO QPM
Hold Instructions: Restart when blood pressure is greater than 140/90
Discharge Orders:
Discharge Patient (As Directed); Ordered 05/28/25
Ordered By: Sameer Park
Discharge Date and Time
Discharge Date/Time: 05/28/25 14:09
Print Language: PRYDEINIG
[2025-05-28 13:00] VITALS: BP 128/54
--- NOTE | 2025-05-28 17:08 | CM ---
Received consult for VN. Patient denied need. IMM reviewed and signed.
Plan: Case management will continue to follow and assist with discharge planning. Home.
== END 2025-05-28 14:09 | disposition home or self-care (01) | DRG 871 ==
LOC: 4 EAST ACU 15:02
PROVIDERS: Nurse Practitioner Primary Care; Physician Assistant; Registered Nurse; ADMITTING PHYSICIAN Hospitalist; ATTENDING PHYSICIAN Internal Medicine; CONSULT PHYSICIAN Internal Medicine Critical Care Medicine; EMERGENCY PHYSICIAN Emergency Medicine; FAMILY PHYSICIAN Internal Medicine
DX: A41.9 Sepsis, unspecified organism (principal); R65.21 Severe sepsis with septic shock; E87.1 Hypo-osmolality and hyponatremia; E87.20 Acidosis, unspecified; Z11.52 Encounter for screening for COVID-19; Z87.891 Personal history of nicotine dependence; E86.1 Hypovolemia; K21.9 Gastro-esophageal reflux disease without esophagitis; E87.6 Hypokalemia; I95.89 Other hypotension
CPT/HCPCS: 71045; 74177; 80048; 80053; 80202; 81003; 81015; 82140; 83605; 83735; 84443; 85025; 85027; 85610; 85730; 87040; 87070; 87086; 87502; 87811; 93005; 96361; 96365; 97116; 97162; 97166; 97530; 99291; Q9967

== ENCOUNTER 2025-06-01 16:31 | Emergency (ER) | payer OTHER, SELFPAY ==
[2025-06-01 16:40] VITALS: BP 125/64
[2025-06-01 17:01] LABS: Hematocrit 29.2 % (37.0-47.0); Hemoglobin 10.2 g/dL (12.0-16.0); Mean Corp Hgb Conc. 34.9 g/dL (33.0-37.0); Mean Corpuscular Volume 85.6 fL (81.0-99.0); Nucleated Red Blood Cells % 0 %; Platelet Count 211 10^3/uL (130-400); Red Cell Dist. Width 14.9 % (11.5-14.5)
[2025-06-01 17:23] LABS: ALT (SGPT) 28 U/L (0-35); AST (SGOT) 36 U/L (14-36); Albumin 3.3 g/dl (3.5-5.0); Alkaline Phosphatase 55 U/L (38-126); Blood Urea Nitrogen 17 mg/dl (7-17); Calcium 8.7 mg/dl (8.4-10.2); Carbon Dioxide 19 mmol/L (22-30); Chloride 105 mmol/L (98-107); Glucose 196 mg/dl (70-99); Potassium 3.8 mmol/L (3.5-5.1); Sodium 132 mmol/L (135-145); Total Protein 5.9 g/dl (6.3-8.2); eGFR > 60.00
[2025-06-01 20:04] VITALS: BP 153/73
[2025-06-01 22:45] LABS: Urine Character Clear (Clear)
[2025-06-01 22:50] LABS: Urine Squamous Cell >30 /LPF (Few)
[2025-06-01 22:52] LABS: Urine Red Blood Cell 16-20 /HPF (0-2)
[2025-06-01] MEDS: AUGMENTIN 875 MG/125 MG 1 TABLET PO (23:48)
--- NOTE | 2025-06-01 23:58 | ED.GENMED ---
History of Present Illness
General
Chief Complaint: Fever
Source: patient and family (daughter)
Exam Limitations: none
Time Seen by Provider: 06/01/25 19:49
Nursing documentation reviewed up to this point in time: agreed with
History of Present Illness
History of Present Illness:
Patient to ED for eval of fever. SHe was recently discharge from here after admission for fever of unknown origin. Treated with IV antibiotics and then transitioned to augmentin. SHe has 2 doses remaining. Her home health aide called daughter
and reported temp of 101 today. Daughter brought her to ED. ON arrival she is afebrile and without complaints.
Past History
Past History
ED Past Medical History: GERD, HTN, Hypercholesterolemia, NIDDM (Diet controlled) and Other (Interstitial cystitis, UTIs)
ED Past Surgical History: Orthopedic and Tonsilectomy
Social History
Tobacco: Non-smoker
Alcohol: None
Drug: None
Personal:
Living: with family
Employment: Retired
Family History
Family History: Other (Noncontributory)
Review of Systems
Review of Systems
Allergies reviewed?: Yes
All Other Systems: ROS reviewed and negative except as documented in HPI and ROS
Constitutional: Reports no symptoms
EENT: Reports no symptoms
Respiratory: Reports no symptoms
Cardiac: Reports no symptoms
ABD/GI: Reports no symptoms
: Reports no symptoms
Musculoskeletal: Reports no symptoms
Skin: Reports no symptoms
Neurological: Reports no symptoms
Psychiatric: Reports no symptoms
Phy Exam
General Physical Exam
General Presentation: well appearing and no apparent distress
General age: appears stated age
General Skin: warm
General Habitus: normal
General Mental: alert
Cardiovascular Exam
Cardiovascular Exam: regular rate/rhythm and no edema
Pulmonary Exam
Pulmonary Exam: lungs clear and no respiratory distress
Gastrointestinal Exam
Gastrointestinal Exam: normal bowel sounds, non tender, soft and no organomegaly
Neurological Exam
Neurological Exam: alert, oriented x3, CN II-XII intact, no motor deficits and speech normal
Musculoskeletal Exam
Musculoskeletal Exam: full ROM and neuro vasc intact
Skin Exam
Skin Exam: normal color and no rash
Psychiatric Exam
Psychiatric Exam: normal mood/affect
Course
Orders/Labs/Results
Orders:
Orders
06/01/25 16:46
Complete Blood Count/With Diff Urgent
Comprehensive Metabolic Panel Urgent
Lactic Acid Urgent
06/01/25 22:38
Urinalysis Reflex To Culture Urgent
Date Specimen was Collected: 06/01/25
Time Specimen was Collected: 22:36
Urine Microscopic Reflex Cult Urgent
Urine Culture Urgent
ALISSA Source: U
Specimen Description:
Date Specimen was Collected: 06/01/25
Time Specimen was Collected: 22:36
06/01/25 23:12
Amoxicillin 875 mg/Clav 125 mg [Augmentin 875 mg/125 mg] 1 tablet PO NOW STA
Abnormal Lab Results
06/01/25 06/01/25
16:46 22:38
RBC 3.41 L 10^6/uL
(4.20-5.40)
Hgb 10.2 L g/dL
(12.0-16.0)
Hct 29.2 L %
(37.0-47.0)
RDW 14.9 H %
(11.5-14.5)
Absolute Lymphs (auto) 1.0 L 10^3/uL
(1.2-3.4)
Neutrophils % 76.6 H %
(42.2-75.2)
Lymphocytes % 14.3 L %
(20.5-51.1)
Sodium 132 L mmol/L
(135-145)
Carbon Dioxide 19 L mmol/L
(22-30)
Glucose 196 H mg/dl
(70-99)
Total Protein 5.9 L g/dl
(6.3-8.2)
Albumin 3.3 L g/dl
(3.5-5.0)
Ur Occult Blood Reflex 4+ A
(Negative)
Leukocyte Esterase Rfl 1+ A
(Negative)
Urine RBC 16-20 A /HPF
(0-2)
Urine WBC (Reflex) 11-15 A /HPF
(0-5)
Urine Bacteria (Reflex) Moderate A
(Negative)
Urine Albumin (Reflex) 3+ A
(Neg - Trace)
06/01/25 16:46
06/01/25 16:46
Vital Signs
Initial and Last Documented VS:
Initial Vital Signs
Temp Pulse Resp BP Pulse Ox
97.9 F 88 20 125/64 96
06/01/25 16:40 06/01/25 16:40 06/01/25 16:40 06/01/25 16:40 06/01/25 16:40
Last Documented Vital Signs
Temp Pulse Resp BP Pulse Ox
98 F 87 16 153/73 96
06/01/25 20:04 06/01/25 20:04 06/01/25 20:04 06/01/25 20:04 06/01/25 20:04
*Pulse Oximetry
SaO2: 96
Oxygen Mode of Delivery: Room air
Patient hypoxic: no
*Critical Care Note
Total Time (30-74mins, 75-104mins- exclusive of procedures): Not Applicable
Update Note
Update Note:
Patient to ED for report of fever tonight at home. She remains afebrile in ED and has no complaints. Labs reviewed. UA wisth microscopic blood, many bacteria, however squamous cells are >30. WIll continue augmentin as prescribed and wait for
culture results. SHe is in no distress and will be discharged home. Pateint and evater given instructions on s/s to return to ED and they are agreeable toplan.
ED Attending Note
-
Portions of this chart may have been created with voice recognition software.� Occasional wrong word or��sound alike� substitutions may have occurred due to the inherent limitations of voice recognition software.
Discharge Plan
Departure
Patient Disposition: Home (Routine Discharge)
Date of Disposition: 06/01/25
Time of Disposition: 23:12
Patient with high blood pressure during this ER visit?: No
Condition: Good
Covid-19: Not Applicable
Discharge Problem:
Fever in adult
Instructions: Fever, Adult (DC)
Prescriptions:
No Action
amlodipine [Norvasc] 10 mg Tablet
10 mg PO DAILY
lansoprazole 15 mg Capsule,Delayed Release(Dr/Ec)
15 mg PO DAILY
lisinopril-hydrochlorothiazide 20-25 mg Tablet
1 tab PO QPM
escitalopram oxalate [Lexapro] 5 mg Tablet
15 mg PO HS
therapeutic multivitamin Tablet
1 tab PO DAILY
cholecalciferol (vitamin D3) [Vitamin D3] 25 mcg (1,000 unit) Tablet
25 mcg PO DAILY
cranberry extract [Ellura] 200 mg Capsule
200 mg PO DAILY
Probiotic 10 billion cell capsule
10,000 mmu cells PO DAILY Qty: 10 0RF
amoxicillin-pot clavulanate 875-125 mg tablet
1 tab PO BID Qty: 10 0RF
Referrals:
Elisabeth Powell MD [Family Provider, Internal Medicine] - Tomorrow
Activity Restrictions/Additional Instructions:
Return to the emergency department immediately for any changes in/worsening of your symptoms.
Interventions
Interventions:
*Risk Screen - Suicide Last Done: 06/01/25 20:08
*General Assessment Last Done: 06/01/25 16:40
*Neglect/Abuse Screening Last Done: 06/01/25 20:08
*ED- Fall Risk Assessment Last Done: 06/01/25 20:08
*ED COVID-19 Vaccine History Last Done: 06/01/25 20:08
ED- Neurological Assessment Last Done: 06/01/25 20:09
ED-Skin Assessment Last Done: 06/01/25 22:53
Discharge Date and Time
Print Language: ALBANIAN
[2025-06-01 23:59] VITALS: BP 144/80
[2025-06-02 00:07] VITALS: BP 153/73
== END 2025-06-02 00:08 | disposition home or self-care (01) ==
LOC: EMR 16:31
PROVIDERS: Emergency Medicine; Nurse Practitioner; EMERGENCY PHYSICIAN Emergency Medicine; FAMILY PHYSICIAN Internal Medicine
DX: R50.9 Fever, unspecified (principal); I10 Essential (primary) hypertension; E78.00 Pure hypercholesterolemia, unspecified; E11.9 Type 2 diabetes mellitus without complications; K21.9 Gastro-esophageal reflux disease without esophagitis; N30.10 Interstitial cystitis (chronic) without hematuria; F03.90 Unspecified dementia, unspecified severity, without behavioral disturbance, psychotic disturbance, mood disturbance, and anxiety; I42.9 Cardiomyopathy, unspecified; M19.90 Unspecified osteoarthritis, unspecified site; K76.0 Fatty (change of) liver, not elsewhere classified; F32.A Depression, unspecified; Z96.653 Presence of artificial knee joint, bilateral; Z87.440 Personal history of urinary (tract) infections; Z87.891 Personal history of nicotine dependence; Z88.1 Allergy status to other antibiotic agents; Z88.5 Allergy status to narcotic agent; Z88.8 Allergy status to other drugs, medicaments and biological substances
CPT/HCPCS: 99283; 80053; 81003; 81015; 83605; 85025; 87086

== ENCOUNTER 2025-06-08 18:09 | Observation (INO) | payer OTHER, SELFPAY ==
[2025-06-08] VITALS (12 sets, daily range): BP systolic 107–157; BP diastolic 33–84; BMI 25.8
[2025-06-08 13:21] LABS: Urine Character Clear (Clear)
[2025-06-08 13:35] LABS: Hematocrit 29.8 % (37.0-47.0); Hemoglobin 10.2 g/dL (12.0-16.0); Mean Corp Hgb Conc. 34.2 g/dL (33.0-37.0); Mean Corpuscular Volume 84.9 fL (81.0-99.0); Nucleated Red Blood Cells % 0 %; Platelet Count 336 10^3/uL (130-400); Red Cell Dist. Width 14.9 % (11.5-14.5)
[2025-06-08 13:38] LABS: Urine Squamous Cell >30 /LPF (Few)
[2025-06-08 13:41] LABS: Urine Red Blood Cell 30-40 /HPF (0-2)
[2025-06-08 14:01] LABS: ALT (SGPT) 30 U/L (0-35); AST (SGOT) 39 U/L (14-36); Albumin 3.4 g/dl (3.5-5.0); Alkaline Phosphatase 88 U/L (38-126); Blood Urea Nitrogen 22 mg/dl (7-17); Calcium 8.6 mg/dl (8.4-10.2); Carbon Dioxide 22 mmol/L (22-30); Chloride 103 mmol/L (98-107); Glucose 132 mg/dl (70-99); Iron 28 ug/dl (37-170); Potassium 3.6 mmol/L (3.5-5.1); Sodium 132 mmol/L (135-145); Total Protein 6.2 g/dl (6.3-8.2); eGFR > 60.00
[2025-06-08 14:10] LABS: Total Iron Binding Capacity 244 ug/dl (265-497)
[2025-06-08 14:34] LABS: Troponin I 0.053 ng/ml
[2025-06-08 14:37] LABS: Ferritin 251.0 ng/ml (11.1-264.0)
[2025-06-08 14:52] LABS: Vitamin B12 551 pg/ml (239-931)
--- NOTE | 2025-06-08 14:56 | ED.GENMED ---
History of Present Illness
General
Chief Complaint: Chest Pain
Source: patient
Exam Limitations: none
Time Seen by Provider: 06/08/25 13:03
History of Present Illness
History of Present Illness:
84-year-old female presents with daughter who states the patient has had intermittent chest discomfort over the past 2 days. Most recent episode was this morning. Current time my exam the patient denies chest pain. She actually initially
expresses her desire to go home secondary to improvement of symptoms. No shortness of breath. No nausea or diaphoresis. She was here recently for sepsis and fever of unknown origin. She recently finished a course of Augmentin.
Past History
Past History
ED Past Medical History: GERD, HTN, Hypercholesterolemia, NIDDM (Diet controlled) and Other (Interstitial cystitis, UTIs)
ED Past Surgical History: Orthopedic and Tonsilectomy
Social History
Tobacco: Non-smoker
Alcohol: None
Drug: None
Personal:
Living: with family
Employment: Retired
Family History
Family History: Other (Noncontributory)
Phy Exam
Physical Exam
Physical Exam:
General: Well-appearing female no acute respiratory distress
HEENT: Normocephalic atraumatic
Heart: Regular rate and rhythm no obvious murmur
lungs: Clear no wheeze
Extremities: No cyanosis or edema
Skin: Warm no rash
Scores
Heart Score for Chest Pain Patients
STEMI patient?: No
History: Moderately Suspicious
ECG: Normal
Age: >/= 65 years
Risk Factors: 1 or 2 Risk Factors
Troponin: >1 - <3 x Normal Limit
Heart Score for Chest Pain Patients: 5
Heart Score Risk: 20.3% MACE over next 6 weeks
Course
Orders/Labs/Results
Orders:
Orders
06/08/25 11:08
EKG [Electrocardiogram (*1)] Urgent
Reason for Study: Chest Pain
EKG- Treatment ONCE
06/08/25 13:11
Urinalysis Reflex To Culture Urgent
Date Specimen was Collected: 06/08/25
Time Specimen was Collected: 12:41
Urine Microscopic Reflex Cult Urgent
Urine Culture Urgent
ALISSA Source: U
Specimen Description:
Date Specimen was Collected: 06/08/25
Time Specimen was Collected: 12:41
06/08/25 13:26
B12 [Vitamin B12] Urgent
Complete Blood Count/With Diff Urgent
Comprehensive Metabolic Panel Urgent
Ferritin Urgent
Iron Urgent
TSH Reflex To Free T4 Urgent
Total Iron Binding Urgent
Troponin I Urgent
06/08/25 14:56
Aspirin 325 mg PO NOW STA
Abnormal Lab Results
06/08/25 06/08/25
13:11 13:26
RBC 3.51 L 10^6/uL
(4.20-5.40)
Hgb 10.2 L g/dL
(12.0-16.0)
Hct 29.8 L %
(37.0-47.0)
RDW 14.9 H %
(11.5-14.5)
Abs Immat Gran (auto) 0.1 H 10^3/uL
(0-0.05)
Absolute Neuts (auto) 7.5 H 10^3/uL
(1.4-6.5)
Absolute Monos (auto) 0.8 H 10^3/uL
(0.1-0.6)
Neutrophils % 78.0 H %
(42.2-75.2)
Lymphocytes % 12.5 L %
(20.5-51.1)
Sodium 132 L mmol/L
(135-145)
BUN 22 H mg/dl
(7-17)
Glucose 132 H mg/dl
(70-99)
Iron 28 L ug/dl
(37-170)
TIBC 244 L ug/dl
(265-497)
% Saturation 11 L %
(20-50)
AST 39 H U/L
(14-36)
Troponin I 0.053 H* ng/ml
Total Protein 6.2 L g/dl
(6.3-8.2)
Albumin 3.4 L g/dl
(3.5-5.0)
Ur Occult Blood Reflex 4+ A
(Negative)
Leukocyte Esterase Rfl 2+ A
(Negative)
Urine RBC 30-40 A /HPF
(0-2)
Urine WBC (Reflex) 11-15 A /HPF
(0-5)
Urine Bacteria (Reflex) Few A
(Negative)
Urine Albumin (Reflex) 3+ A
(Neg - Trace)
06/08/25 13:26
06/08/25 13:26
Vital Signs
Initial and Last Documented VS:
Initial Vital Signs
Temp Pulse Resp BP Pulse Ox
98.1 F 97 20 146/84 97
06/08/25 11:09 06/08/25 11:09 06/08/25 11:09 06/08/25 11:09 06/08/25 11:09
Last Documented Vital Signs
Temp Pulse Resp BP Pulse Ox
99 F 87 29 120/64 96
06/08/25 12:41 06/08/25 14:30 06/08/25 14:30 06/08/25 13:00 06/08/25 12:41
MDM/Problems Addressed
Differential Diagnosis Includes:
Chest pain. Consider ACS versus dissection but unlikely given resolution of symptoms. Pain is not pleuritic. Do not suspect PE. Vital signs are stable.
EKG shows sinus rhythm with a rate of 82 no ischemic changes
Troponin is elevated today 0.053. Aspirin ordered. Patient still pain-free. Will admit to hospital at hospitalist and cardiology aware
*Pulse Oximetry
SaO2: 96
Oxygen Mode of Delivery: Room air
Patient hypoxic: no
*Critical Care Note
Total Time (30-74mins, 75-104mins- exclusive of procedures): Not Applicable
ED Attending Note
-
Portions of this chart may have been created with voice recognition software.� Occasional wrong word or��sound alike� substitutions may have occurred due to the inherent limitations of voice recognition software.
Discharge Plan
Departure
Patient Disposition: Admit
Date of Disposition: 06/08/25
Time of Disposition: 15:01
Presentation/result/management discussed w/ accepting MD/DO: Hospitalist
Discharge Problem:
Chest pain
Prescriptions:
No Action
lansoprazole 15 mg Capsule,Delayed Release(Dr/Ec)
15 mg PO DAILY
escitalopram oxalate [Lexapro] 5 mg Tablet
15 mg PO HS
therapeutic multivitamin Tablet
1 tab PO DAILY
cholecalciferol (vitamin D3) [Vitamin D3] 25 mcg (1,000 unit) Tablet
25 mcg PO DAILY
cranberry extract [Ellura] 200 mg Capsule
200 mg PO DAILY
Probiotic 10 billion cell capsule
10,000 mmu cells PO DAILY Qty: 10 0RF
Referrals:
Elisabeth Powell MD [Family Provider, Internal Medicine]
Interventions
Interventions:
*Risk Screen - Suicide Last Done: 06/08/25 12:45
*General Assessment Last Done: 06/08/25 11:09
*Neglect/Abuse Screening Last Done: 06/08/25 12:45
*ED- Fall Risk Assessment Last Done: 06/08/25 12:42
*ED COVID-19 Vaccine History Last Done: 06/08/25 12:42
ED- Cardiac Assessment Last Done: 06/08/25 12:42
Discharge Date and Time
Print Language: YAKUT
[2025-06-08] MEDS: ASPIRIN 325 MG PO (15:08)
--- NOTE | 2025-06-08 16:35 | CON.CAR ---
Addendum entered and electronically signed by David Thomas MD 06/08/25 17:13:
I saw and examined the patient.
The PASSENGER BRAKEMAN or PA's note was reviewed and I agree with the note.
Comment: General: Well developed, well nourished in NAD.
Neck: Supple, no JVD, HJR, carotids +2 B/L, no bruits bilaterally.
Heart: Non displaced PMI, RRR, no murmurs, No S3, S4, no rubs.
Lungs: Scattered rhonchi
Extremities: No clubbing, cyanosis or edema bilaterally.
Neuro: Grossly nonfocal, awake, alert and oriented x3.
Deanne has a history of hypertension, Lundberg, dementia, diabetes. She presents complains of chest pain. She is a poor historian due to dementia. Troponin was 0.053 cardiology was consulted. She denies any chest pain at the present time. She has
had persistent fevers over the past several weeks and was discharged on 05/28/2025. Suspect troponin elevation is non-SC ischemic related. Will track troponins and check echocardiogram. Treat conservatively given advanced age and comorbidities.
Discussed with patient and daughter in detail.
Original Note:
Consultation
Consultation Request
Date/Time Consultation Requested: 06/08/2025
Date/Time Consultation Performed: 06/08/2025
Requesting Provider: Enrique Maki PA-C
Performing Provider: Bea Estrada PA-C for Dr. David Thomas
Reason for Consultation: Abnormal troponin
Medical History
-
History of Present Illness:
Patient is an 84-year-old female with past medical history significant for hypertension, chronic transaminitis, Lundberg, GERD, type 2 diabetes and memory impairment who presented to emergency department 06/08/2025 with chest pain. Patient recently was
admitted to [facility] 05/25 to 05/28/2025 for septic shock. Blood cultures were negative. Source of infection was never clearly identified. She was discharged home on antibiotics. She returned to emergency department on 06/02/2025 with low-grade
temperature and weakness. She once again was discharged home. Now presents back 06/08/2025 with her daughter after complaining of intermittent chest substernal/epigastric chest discomfort which daughter reports occurs without rhyme or reason. At
times it is relieved with belching other times it can last several minutes and then resolve spontaneously. Daughter reports she has been holding most of her antihypertensive agents but did resume her amlodipine today. EKG on presentation
demonstrated sinus rhythm without ischemia. Troponin mildly elevated at 0.053, sodium 132, potassium 3.6. Daughter reports patient has had persistent daily fever which improves with 1 dose of Tylenol. White count 9.7
Past medical history:
Hypertension
chronic transaminitis
Lundberg
GERD
Hiatal hernia
Memory impairment
Chronic anemia
Type 2 diabetes
Past Medical History
Past Medical History: Other (See HPI)
Past Surgical History: Orthopedic (Left rotator repair 2011, right total knee replacement 2013 right total knee replacement 2020), Tonsilectomy and Other (Bilateral cataract extraction, breast biopsy, nasal surgery/resection 1974, Mohs procedure)
Social History
Tobacco: Former Smoker (Quit at age 41)
Alcohol: None
Drug: None
Personal:
Living: Alone
Employment: Retired
Family History
Family History: Other (Father at 59 coronary disease, hypertension, diabetes. Mother 91 diabetes, CAD Brother of heart disease at 88. Sister of pancreatic cancer at 94)
Allergies / Home Medications
Allergy/AdvReac Type Severity Reaction Status Date / Time
clindamycin AdvReac Diarrhea Verified 06/08/25 11:09
fenofibrate nanocrystallized AdvReac diarrhea Verified 06/08/25 11:09
(From Tricor)
metformin AdvReac diarrhea Verified 06/08/25 11:09
and belly
pain
metronidazole (From Flagyl) AdvReac diarrhea Verified 06/08/25 11:09
niacin AdvReac inflamed Verified 06/08/25 11:09
liver
oxycodone HCl (From Percodan) AdvReac nausea, Verified 06/08/25 11:09
dizziness,
spaced out
prochlorperazine maleate AdvReac Difficulty Verified 06/08/25 11:09
(From Compazine) speaking,
facial
distortion
ranitidine HCl (From Zantac) AdvReac Leg cramps Verified 06/08/25 11:09
Ipimyqa-ONK-GnX Reductase AdvReac Diarrhea, Verified 06/08/25 11:09
Inhibitor (Qpbcntd-Dzt-Mlh gas,
Reductase Inhibitor) bloating,
intestinal
pain
�Medication �Instructions �Recorded �Confirmed �Type
cholecalciferol (vitamin D3) 25 25 mcg PO DAILY Supplement 05/25/25 06/08/25 History
mcg (1,000 unit) tablet (Vitamin
D3)
cranberry extract 200 mg capsule 200 mg PO DAILY Urinary Issue 05/25/25 06/08/25 History
(Ellura)
lansoprazole 15 mg capsule,delayed 15 mg PO DAILY GERD 05/25/25 06/08/25 History
release
therapeutic multivitamin 1 tab PO DAILY Supplement 05/25/25 06/08/25 History
acetaminophen 325 mg tablet 650 mg PO Q6HPRN PRN fever 06/08/25 06/08/25 History
(Tylenol)
amlodipine 10 mg tablet (Norvasc) 10 mg PO DAILY 06/08/25 06/08/25 History
famotidine 40 mg tablet (Pepcid) 40 mg PO DAILY 06/08/25 06/08/25 History
lisinopril 10 mg tablet 10 mg PO DAILY 06/08/25 06/08/25 History
Review of Systems
-
History Source: Patient
All other systems: Negative unless noted
Physical Exam
Vital Signs
Temp Pulse Resp BP Pulse Ox
99 F 97 23 111/50 96
06/08/25 12:41 06/08/25 15:30 06/08/25 15:30 06/08/25 15:00 06/08/25 15:01
GEN: No distress, awake, Ox3, elderly female laying in bed
HEENT: supple, anicteric, mmm
LUNGS: CTA, no wheezes/rales
CV: Reg, S1/S2, 1/6 syst murmur, no rub or gallop
ABD: soft, BS+, NT/ND
EXT: No edema, clubbing or cyanosis
NEURO: Gross non-focal
SKIN: No rash, warm, dry, pink
Lab Results
06/08/25 13:26
06/08/25 13:26
Troponin I 0.053 ng/ml H* 06/08/25 13:26
Impression / Plan
-
PCP: Elisabeth Powell
It Network Architect: None prior to admission, Initial eval Dr. Thomas
Impression:
Present 06/08/2025 with intermittent chest pain x 2 to 3 days
Abnormal troponin, initial 0.053
Recent admission for fever/sepsis unclear source
Ongoing daily fever
Hypertension
chronic transaminitis
Lundberg
GERD
Hiatal hernia
Memory impairment
Chronic anemia
Type 2 diabetes
No prior outpatient cardiology studies
Plan:
-Presents 06/08/2025 with intermittent chest pain x 2 to 3 days. Reports substernal and epigastric. Comes and goes without rhyme or reason. Sometimes improved with belching.
-EKG shows sinus rhythm without ischemia, cannot rule out old inferior SC
-Abnormal troponin, initial 0.053. Would repeat troponin. If troponin lower could consider going home
-If patient stays for observation would check echo in a.m. Per review of outpatient records it does not appear that patient ever had echo or cardiac testing in past
-Possible GERD component as symptoms can be relieved with belching at times and patient recently completed antibiotic. Continue PPI and Pepcid. Of note patient does have history of hiatal hernia which was seen on CT of abdomen/pelvis 05/25/2025
-Recent admission for fever/sepsis unclear source still per daughter has ongoing daily fever. Recently completed antibiotics. Normal white count this admission
- Longstanding history of hypertension. Lisinopril/HCTZ and amlodipine held during recent admission. Would consider resuming reduced dose of amlodipine at 2.5 or 5 mg. Patient previously was on 10 mg. Daughter reports she got 1 dose early today.
Data Reviewed
-
EKG: Report Reviewed by me, Discussed with Physician, Discussed with Patient and Discussed with Family
Labs: Labs Reviewed by me, Discussed with Physician, Discussed with Patient and Discussed with Family
Old Records: Reviewed
--- NOTE | 2025-06-08 18:19 | HPS.HSE ---
Addendum entered and electronically signed by Kemal Goodman MD, Resident 06/12/25 18:43:
Allergies
Allergy/AdvReac Type Severity Reaction Status Date / Time
clindamycin Allergy Diarrhea Verified 06/08/25 20:51
fenofibrate nanocrystallized Allergy diarrhea Verified 06/08/25 20:51
(From Tricor)
metformin Allergy diarrhea Verified 06/08/25 20:51
and belly
pain
metronidazole (From Flagyl) Allergy diarrhea Verified 06/08/25 20:51
niacin Allergy inflamed Verified 06/08/25 20:51
liver
oxycodone HCl (From Percodan) Allergy nausea, Verified 06/08/25 20:51
dizziness,
spaced out
prochlorperazine maleate Allergy Difficulty Verified 06/08/25 20:51
(From Compazine) speaking,
facial
distortion
ranitidine HCl (From Zantac) Allergy Leg cramps Verified 06/08/25 20:51
Osihxkx-ZIN-OgZ Reductase Allergy Diarrhea, Verified 06/08/25 20:51
Inhibitor (Zhwzulm-Nqf-Scc gas,
Reductase Inhibitor) bloating,
intestinal
pain
Home Medications
cholecalciferol (vitamin D3) 25 mcg (1,000 unit) tablet (Vitamin D3) 25 mcg PO DAILY Supplement 05/25/25
cranberry extract 200 mg capsule (Ellura) 200 mg PO DAILY Urinary Issue 05/25/25
lansoprazole 15 mg capsule,delayed release 15 mg PO DAILY GERD 05/25/25
therapeutic multivitamin 1 tab PO DAILY Supplement 05/25/25
acetaminophen 325 mg tablet (Tylenol) 650 mg PO Q6HPRN PRN fever 06/08/25
amlodipine 10 mg tablet (Norvasc) 10 mg PO DAILY 06/08/25
famotidine 40 mg tablet (Pepcid) 40 mg PO DAILY 06/08/25
Addendum entered and electronically signed by Tom Snyder MD 06/09/25 14:10:
Presenting with chest pain and discomfort that has been intermittent. She does have dementia so difficult to tell but states left-sided behind the chest bone pressure-like sensation does not move around. Currently does not have chest discomfort.
Ongoing for the last 3 to 4 days. Daughter at bedside.
NSTEMI with chest discomfort that has resolved.
Trend troponin
If troponin trending up then start heparin drip
Otherwise if downtrending do not trend any further
2D echocardiogram
Cardiology consult
Dementia
Reorientation
Urinary precautions
total time spent 76mins
Original Note:
Family Physician
-
Family Physician: Elisabeth Powell
Chief Complaint
-
Chest pain for the past 4 days, intermittent once everyday, (history was taken from theb patient and her daughter at the bed side)
History of Present Illness
Chest pain which was present at the mid of the chest and intermittent in nature, type of the pain (she couldnt remember), not radiating, non reproducible. Resolved by its own, initially she thought it could be because of gastritis. It presents
atleast once a day while on sitting for the past 4 days. Recently she got admitted on may 25 for the sepsis and completed her augmentin medication course recently. Pain is not associated with nausea, vomiting, sweating, palpitation.
Medical History
Past Medical History
Past Medical History: Reports GERD, HTN, Hypercholesterolemia and Other (NIDDM )
Past Surgical History: Reports Tonsilectomy and Other (ORTHOPEDIC)
Social History
Unable to obtain full social history at this time due to: Dementia (She is oriented to the time, place. But she couldnt recollect what happened day before. )
Tobacco: Non-smoker
Alcohol: None
Drug: None
Personal:
Living: With Family
Employment: Retired
Family History
Family History: Other
Allergies / Home Medications
Allergies reflects when Allergies were last updated in [facility].
Home Medications with original date entered in [facility]
Allergy/Medication List:
Clindamycin - Diarrhea
Fenofibrate- Diarrhea
Metformin- diarrhea
Oxycodone- nausea, dizziness,
prochlorperazine- facial distortion
Ranitidine- leg cramps
Statins- Gas, bloating, Intestinal pain.
If medication reconciliation has not been performed, why?: Dementia
Review of Systems
-
Unable to obtain full review of systems at this time due to: Dementia
History Source: Patient and Family (daughter)
Constitutional: Reports No Symptoms
Respiratory: Reports No Symptoms
Cardiac: Reports Chest Pain (INTERMITTENT, RESOLVED BY ITS OWN, AFTER ADMISSION AT ER she didnt experience chest pain.)
Abdomen/GI: Reports No Symptoms
: Reports No Symptoms
Musculoskeletal: Reports No Symptoms
Skin: Reports No Symptoms
Neurological: Reports No Symptoms
Endocrine: Reports No Symptoms
Hematologic/Lymphatic: Reports No Symptoms
Psych: Reports No Symptoms
Physical Exam
Vital Signs
Vital Signs
Temp Pulse Resp BP Pulse Ox
99 F 93 20 117/62 97
06/08/25 12:41 06/08/25 17:00 06/08/25 17:00 06/08/25 17:00 06/08/25 16:39
Physical Exam
General: No Apparent Distress
HEENT: Moist mucous membranes
Respiratory: Clear
Cardiac: S1/S2 (loud )
GI: Soft and Non Tender
Musculoskeletal: No Clubbing
Skin: Warm
Neuro: Awake, Alert and Oriented
Hematologic/Lymphatic: No Lymphadenopathy
Psych: Calm
Laboratory Results
-
06/08/25 13:26
06/08/25 13:26
Laboratory Results
Total Bilirubin 0.8 mg/dl (0.2-1.3) 06/08/25 13:26
AST 39 U/L (14-36) H 06/08/25 13:26
ALT 30 U/L (0-35) 06/08/25 13:26
Alkaline Phosphatase 88 U/L (38-126) 06/08/25 13:26
Troponin I 0.053 ng/ml H* 06/08/25 13:26
Impression/Plan
-
IMPRESSION &PLAN:
#Atypical Chest pain/ cardiogenic/ NSTEMI/ GERD:
Atypical chest pain, patient experience while on sitting, non radiating, ( type 2 DM could be the possibility for masking the cardiac chest pain)
Patient was recently admitted for the Sepsis/ fever might be the cause for troponin elevation.
Troponin trends from the time of admission 0.053>0.048
EKG shows- Heart rate- 83 bpm, rhythm regular, non ST elevation.
Heparin drip on hold because of downtrending of TROPONIN level.
# GERD:
continue famotidine.
# Hypertension:
Continue with Amlodipine 5 mg by senior category manager recommendation.
Disposition: home (Along with Home care)
[2025-06-08 18:25] LABS: Troponin I 0.048 ng/ml
--- NOTE | 2025-06-09 00:30 | PTCARENOTE ---
Received pt @ approx 2049 accompanied by ED RN into room 2256. pt AOx3, but confused/forgetful @x's. pt with hx of dementia. SR on tele, HR in the 90's. Fall risk precautions maintained. Bed alarm on and audible. pt oriented to room and informed to
call staffing rn for assistance ambulating. pt calls appropriately. Call cochran within reach.
--- NOTE | 2025-06-09 00:43 | PTCARENOTE ---
Received pt @ approx 2049 accompanied by ED RN into room 2256. pt AOx3, but confused/forgetful @x's. pt with hx of dementia. SR on tele, HR in the 90's. pt denies any CP or SOB at this time. Fall risk precautions maintained. Bed alarm on and
audible. pt oriented to room and informed to call workforce staffing advisor for assistance ambulating. pt calls appropriately. Call cochran within reach.
[2025-06-09 03:10] VITALS: BP 129/62
[2025-06-09 03:11] VITALS: BP 129/62
[2025-06-09 03:33] VITALS: BMI 25.5
--- NOTE | 2025-06-09 03:39 | PTCARENOTE ---
pt states, 'I don't know why I'm having this pain in my chest' after walking her back from the bathroom. When asking pt to clarify, pt reported the pain had resolved after laying down and that it is her, 'neuralgia.' VSS. Bed alarm remains audible.
instructed pt to call RN if any symptoms reoccur. Call cochran within reach.
--- NOTE | 2025-06-09 06:16 | W.PN.HOSP.TC ---
Addendum entered and electronically signed by Tom Snyder MD 06/11/25 14:11:
Presenting with chest pain and discomfort that has been intermittent. She does have dementia so difficult to tell but states left-sided behind the chest bone pressure-like sensation does not move around. Currently does not have chest discomfort.
Ongoing for the last 3 to 4 days. Daughter at bedside.
NSTEMI with chest discomfort that has resolved.
Troponin down trended
2D echocardiogram with EF 70-75
Normal regional wall motion
Cleared by cardiology for discharge home
Outpatient follow-up with cardiology, if ongoing chest discomfort stress test at that time
Dementia
Reorientation
Urinary precautions
Original Note:
Today's Communication/Plan
-
Discharged the patient along with the future follow up with PCP and Kiln Puller.
Assessment / Plan
Assessment / Plan
84 yr old Female presented with Chest pain w8ith known past h/o Hyperlipidemia, hypertension, GERD
# Atypical chest pain/ NSTEMI:
ECG Inferior wall Myocardial Infarct.
troponin down trended from 0.05>0.04.
ECHO 06/09:
There is at least mild mitral regurgitation which may have been underestimated due to mitral annular calcification.
Cardiology consulted and advised for the future follow up with Outpatient set up to reconcile lisinopril/ HCTZ medications and for NON STRESS TEST.
Currently while on discharge Lisinopril/HCTZ held.
# Longstanding history of hypertension:
Patient previously was on 10 mg Amlodipine, and advised to continue the same at the discharge with an advice to hold Amlodipine if her Systolic BP drops below 100mmhg.
# GERD:
continue famotidine.
Anticipated Discharge: Today
Subjective/Interval History
-
Date of Service: June 09, 2025
Patient doesnt has a concern for chest pain. She wants to go home today.
Objective Data
-
Vital Signs:
06/09/25 06:46
06/09/25 06:46
Laboratory Results
Total Bilirubin 0.7 mg/dl (0.2-1.3) 06/09/25 06:46
AST 35 U/L (14-36) 06/09/25 06:46
ALT 27 U/L (0-35) 06/09/25 06:46
Alkaline Phosphatase 80 U/L (38-126) 06/09/25 06:46
Troponin I Cancelled 06/08/25 23:15
Vital Signs
Temp Pulse Resp BP Pulse Ox
98.9 F 82 20 129/62 92
06/09/25 03:11 06/09/25 05:30 06/09/25 03:11 06/09/25 03:11 06/09/25 03:11
I&O
06/07/25 06/08/25 06/09/25
06:59 06:59 06:59
Intake Total 480 / 480
Balance 480 / 480
Review of Systems
-
Unable to obtain full review of systems at this time due to: Dementia
History Source: Patient
Respiratory: Reports No Symptoms
Cardiac: Reports No Symptoms
Abdomen/GI: Reports No Symptoms
Genitourinary: Reports No Symptoms
Musculoskeletal: Reports No Symptoms
Skin: Reports No Symptoms
Neuro: Reports No Symptoms
Endocrine: Reports No Symptoms
Hematologic / Lymphatic: Reports No Symptoms
Physical Exam
-
General: Well Developed
Respiratory: Clear to Auscultation
Cardiac: Regular Rhythm and S1/S2
GI: Soft and Nontender
Genito-urinary: No Costovertebral Tender
Skin: Warm
Neuro: AO x 3
Hematologic / Lymphatic: No Lymphadenopathy
Psych: Calm
[2025-06-09 07:04] LABS: Hematocrit 24.8 % (37.0-47.0); Hemoglobin 8.8 g/dL (12.0-16.0); Mean Corp Hgb Conc. 35.5 g/dL (33.0-37.0); Mean Corpuscular Volume 85.2 fL (81.0-99.0); Nucleated Red Blood Cells % 0 %; Platelet Count 340 10^3/uL (130-400); Red Cell Dist. Width 14.6 % (11.5-14.5)
[2025-06-09 07:05] VITALS: BP 152/69
[2025-06-09] MEDS: PEPCID 20 MG PO (07:25)
[2025-06-09] MEDS: ZESTRIL 10 MG PO (07:25)
[2025-06-09] MEDS: NORVASC 10 MG PO (07:25)
[2025-06-09] MEDS: PROTONIX 20 MG PO (07:25)
--- NOTE | 2025-06-09 07:40 | PTCARENOTE ---
Assumed care. Patient is AO x2, confused to year and month. Requesting that I call her daughter Ines to come take her home today. Denies pain, NSR HR in the 60-70's, BP 152/69. Meds given whole in water. Bed Alarm audible, call cochran in reach
[2025-06-09 08:08] LABS: ALT (SGPT) 27 U/L (0-35); AST (SGOT) 35 U/L (14-36); Albumin 3.2 g/dl (3.5-5.0); Alkaline Phosphatase 80 U/L (38-126); Blood Urea Nitrogen 19 mg/dl (7-17); Calcium 8.3 mg/dl (8.4-10.2); Carbon Dioxide 21 mmol/L (22-30); Chloride 105 mmol/L (98-107); Estimated Creatinine Clearance 52 ml/min; Glucose 136 mg/dl (70-99); Potassium 3.9 mmol/L (3.5-5.1); Sodium 133 mmol/L (135-145); Total Protein 5.8 g/dl (6.3-8.2); eGFR > 60.00
--- NOTE | 2025-06-09 08:52 | W.PN.CARDCBS ---
Addendum entered and electronically signed by David Thomas MD 06/09/25 16:36:
I saw and examined the patient.
The LENS INSERTER or PA's note was reviewed and I agree with the note.
Comment: General: Well developed, well nourished in NAD.
Neck: Supple, no JVD, HJR, carotids +2 B/L, no bruits bilaterally.
Heart: Non displaced PMI, RRR, no murmurs, No S3, S4, no rubs.
Lungs: Clear to auscultation bilaterally, no wheeze, rhonchi, rubs bilaterally,
normal expiratory phase.
Extremities: No clubbing, cyanosis or edema bilaterally.
Neuro: Grossly nonfocal, awake, alert and oriented x3.
Echocardiogram with normal ejection fraction and mild aortic stenosis. Will treat conservatively given dementia. Stable cardiology status for discharge. Discussed with patient and daughter at bedside. Follow-up arranged.
Original Note:
Today's Communication / Plan
-
Echo today, if echo stable patient can be discharged from cardiac standpoint
Outpatient cardiology follow-up has been arranged, will consider stress test at that visit if patient still having chest pain
Impression / Plan
-
PCP: Elisabeth Powell
Commercial Credit Officer: None prior to admission, Initial eval Dr. Thomas
Impression:
Present 06/08/2025 with intermittent chest pain x 2 to 3 days
Abnormal troponin, initial 0.053
Recent admission for fever/sepsis unclear source
Ongoing daily fever
Hypertension
chronic transaminitis
Lundberg
GERD
Hiatal hernia
Memory impairment
Chronic anemia
Type 2 diabetes
Echo 06/09/2025: Pending
Plan:
-Presented 06/08/2025 with intermittent chest pain x 2 to 3 days. Reports substernal and epigastric. Comes and goes without rhyme or reason. Sometimes improved with belching.
-EKG shows sinus rhythm without ischemia, cannot rule out old inferior ME
-Abnormal troponin, initial 0.053. Repeat troponin trended downward 0.048.
-Possible GERD component as symptoms can be relieved with belching at times and patient recently completed antibiotic. Continue PPI and Pepcid. Of note patient does have history of hiatal hernia which was seen on CT of abdomen/pelvis 05/25/2025
-Echo this morning and if stable patient can be discharged
-Discussed with daughter follow-up in office for Lexiscan nuclear stress test if patient continues to have symptoms
-Recent admission for fever/sepsis unclear source still per daughter has ongoing daily fever. Recently completed antibiotics. Normal white count this admission, Tmax 99.9
-Longstanding history of hypertension. Lisinopril/HCTZ and amlodipine held during recent admission. Daughter gave 10 mg of amlodipine on 06/09/2025. Would consider discharging home on 5 mg and uptitrate dose as needed as outpatient.
-Continue to hold lisinopril/HCTZ. Patient has been hyponatremic so HCTZ probably not ideal medicine long-term. Low-dose lisinopril can be restarted as outpatient pending blood pressure.
Plan discussed with patient, patient's daughter, nursing and hospitalist
Progress Note - Commercial Credit Officer
Subjective
Date of Service: June 09, 2025
Patient seen and examined. Still occasional chest discomfort better with belching.
Daughter reports she would like patient to go home today
Objective
Labs:
06/09/25 06:46
06/09/25 06:46
Labs
Hgb 8.8 g/dL (12.0-16.0) L 06/09/25 06:46
Hct 24.8 % (37.0-47.0) L 06/09/25 06:46
Plt Count 340 10^3/uL (130-400) 06/09/25 06:46
Sodium 133 mmol/L (135-145) L 06/09/25 06:46
Potassium 3.9 mmol/L (3.5-5.1) 06/09/25 06:46
BUN 19 mg/dl (7-17) H 06/09/25 06:46
Creatinine 0.6 mg/dL (0.6-1.0) 06/09/25 06:46
Glucose 136 mg/dl (70-99) H 06/09/25 06:46
Troponins
06/08/25 06/08/25 06/08/25
13:26 17:48 23:15
Troponin I 0.053 H* 0.048 H* Cancelled
Vital Signs and I&O:
Vital Signs
Temp Pulse Resp BP Pulse Ox
98.8 F 68 20 152/69 94
06/09/25 07:07 06/09/25 07:15 06/09/25 07:07 06/09/25 07:05 06/09/25 07:07
Vital Signs
Temp Pulse Resp BP Pulse Ox
98.8 F 68 20 152/69 94
06/09/25 07:07 06/09/25 07:15 06/09/25 07:07 06/09/25 07:05 06/09/25 07:07
Intake & Output
06/07/25 06/08/25 06/09/25 06/10/25
06:59 06:59 06:59 06:59
Intake Total 480 / 480
Balance 480 / 480
Physical Exam
Physical Exam
GEN: No distress, awake, Ox3
HEENT: supple, anicteric, mmm
LUNGS: CTA, no wheezes/rales
CV: Reg, S1/S2, 1/6 syst murmur, no rub or gallop
ABD: soft, BS+, NT/ND
EXT: No edema, clubbing or cyanosis
NEURO: Pleasantly demented
SKIN: No rash, warm, dry, pink
[2025-06-09 11:53] VITALS: BP 122/48
[2025-06-09] MEDS: TYLENOL 650 MG PO (12:06)
--- NOTE | 2025-06-09 12:53 | CM ---
spoke to pt in room, deandre scottie amaro, lives alone in a 2 story home with 1 step to enter. she has a walker athome to use if needed. she aslo has 24/7 caregivers with private agency/[employer]. obs letter explained and given to pt. plan is for dc to
home with daughter when medically stable.
--- NOTE | 2025-06-09 14:08 | PTCARENOTE ---
Patient discharged to home. Discharge instructions completed with her daughter and patient at bedside, they verbalized understanding. IV and telemetry removed and patient escorted to main lobby in a wheelchair and assisted in her daughters car
--- NOTE | 2025-06-12 19:44 | W.DCSUMMARY ---
Discharge Summary
Discharge Data
Date of Admission: 06/08/25
Date of Discharge: 06/09/25
Total time spent discharging patient (in min): 20 minutes.
-
Pending Results: No
Hospital Course
Discharging Physician : Dr Kemal Goodman
Dr Tom Snyder M.D.,
Disposition : Home
Primary care physician : Dr Elisabeth Powell.
Principal Discharge diagnosis : NSTEMI with chest discomfort that has resolved.
Chronic Discharge diagnosis :
Hypertension
chronic transaminitis
[place]
GERD
Hiatal hernia
Memory impairment
Chronic anemia
Type 2 diabetes
Hospital Course : 84-year-old female presented with daughter who stated the patient had intermittent chest discomfort over the past 2 days. Chest pain which was present at the mid of the chest and intermittent in nature, type of the pain (she
couldn't remember), not radiating, non reproducible. Resolved by its own, initially she thought it could be because of gastritis. It presented atleast once a day while on sitting for the past 4 days. Recently she got admitted on May 25 for the
sepsis and completed her Augmentin medication course recently. Pain was not associated with nausea, vomiting, sweating, palpitation. NSTEMI with chest discomfort that has resolved.Trend troponin were downtrending at the hospital course ( from the
time of admission 0.053>0.048)
EKG showed- Heart rate- 83 bpm, rhythm regular, non ST elevation. While on discharge advised to Hold Lisinopril/HCTZ until otherwise instructed by PCP or Advertising Agent. Advised to continue Amlodipine 10 mg PO (Hold if her Systolic BP drops below 100
mmHg). Follow up with OP Advertising Agent within a week of discharge. Patient is stable at the course of the admission.
Important imaging findings :
Chest X ray:
Questionable new mild left perihilar pneumonia. Probable small left pleural effusion.
Procedure findings :
Trend troponin were downtrending at the hospital course ( from the time of admission 0.053>0.048)
Discharge Plan
-
Patient Disposition: Home (Routine Discharge)
Discharge Diagnosis/Procedures: Atypical chest pain, Elevated Troponin
Condition: Good
Diet: No restrictions
Activity: No restrictions
Driving Restrictions: As prior to admission
Bathing Restrictions: None
Instructions: Acid Reflux and GERD in Adults (DC), Chest Pain DCA Follow Up, BLOOD PRESSURE
Referrals:
[facility] [Outside]
Referral Note: RN/PT/OT
Bea Estrada PA-C [Specified Professional Personl, Cardiology] - 07/09/25 2:40 pm
Referral Note: You have cardiology follow up with Bea Estrada PA-C in [address] in the [facility] which is located behind the hospital. If you are unable to make this appointment. Please call [phone] to reschedule
Elisabeth Powell MD [Family Provider, Internal Medicine]
Additional Discharge Medication Instructions: -Hold Lisinopril/HCTZ until otherwise instructed by PCP or Advertising Agent
-Continue Amlodipine 10 mg PO (Hold if her Systolic BP drops below 100 mmHg)
-Follow up with OP Advertising Agent within a week of discharge.
Prescriptions:
Continued
lansoprazole 15 mg Capsule,Delayed Release(Dr/Ec)
15 mg PO DAILY
therapeutic multivitamin Tablet
1 tab PO DAILY
cholecalciferol (vitamin D3) [Vitamin D3] 25 mcg (1,000 unit) Tablet
25 mcg PO DAILY
cranberry extract [Ellura] 200 mg Capsule
200 mg PO DAILY
acetaminophen [Tylenol] 325 mg Tablet
650 mg PO Q6HPRN PRN (Reason: fever)
famotidine [Pepcid] 40 mg Tablet
40 mg PO DAILY
amlodipine [Norvasc] 10 mg Tablet
10 mg PO DAILY
Discontinued
lisinopril 10 mg Tablet
10 mg PO DAILY
Discharge Orders:
Discharge Patient (As Directed); Ordered 06/09/25
Ordered By: Kemal Goodman
Care Plan Goals
Care Plan Goals:
Problem: Readiness for enhanced knowledge related to diagnosis and treatment plan
Goal: Understand your diagnosis and treatment plan needs, including medications if applicable.
Instructions: Know your diagnosis, underlying causes and treatment plan options, including medications if applicable. Consult with your health care team to learn about your diagnosis and treatment plan, including medications if applicable.
Discharge Date and Time
Discharge Date/Time: 06/09/25 14:11
Print Language: SPANISH
== END 2025-06-09 14:11 | disposition home or self-care (01) ==
LOC: IVU 18:09
PROVIDERS: Physician Assistant; ADMITTING PHYSICIAN Hospitalist; CONSULT PHYSICIAN Internal Medicine Cardiovascular Disease; EMERGENCY PHYSICIAN Emergency Medicine; FAMILY PHYSICIAN Internal Medicine
DX: I21.4 Non-ST elevation (NSTEMI) myocardial infarction (principal); I10 Essential (primary) hypertension; K21.9 Gastro-esophageal reflux disease without esophagitis; E11.9 Type 2 diabetes mellitus without complications; R74.01 Elevation of levels of liver transaminase levels; K44.9 Diaphragmatic hernia without obstruction or gangrene; F03.90 Unspecified dementia, unspecified severity, without behavioral disturbance, psychotic disturbance, mood disturbance, and anxiety; D64.9 Anemia, unspecified; K75.81 Nonalcoholic steatohepatitis (NASH); E78.00 Pure hypercholesterolemia, unspecified; E87.1 Hypo-osmolality and hyponatremia; Z87.891 Personal history of nicotine dependence; Z79.899 Other long term (current) drug therapy
CPT/HCPCS: 71045; 80053; 81003; 81015; 82607; 82728; 83540; 83550; 84443; 84484; 85025; 87077; 87086; 87186; 93005; 93306; 99285; G0378